=== PATIENT | female | born 1990 | race Two or more races ===

== ENCOUNTER 2024-02-26 18:13 | Emergency (ER) | payer MEDICAID, SELFPAY ==
[2024-02-26 20:44] VITALS: BP 115/74; PULSE 86; RESP 19; TEMP 37.2; O2SAT 100
[2024-02-26 20:47] VITALS: BMI 30.7
--- NOTE | 2024-02-26 21:00 | EDNOTE_ITS ---
ED Dental RME/HPI General Chief complaint: Dental/Oral/Throat Stated complaint: DENTAL PAIN S/P TEETH EXTRACTED x5 DAYS AGO Time Seen by Provider: 02/26/24 20:53 Source: patient Arrival date/time: 02/26/24 18:13 33-year-old female no significant past medical history presents emergency department complaining of dental pain and left-sided cheek swelling after she had 2 wisdom teeth extracted 5 days ago. Patient reports swelling has slightly increased but denies any chills or fevers but does report pain to left side of face. Patient reports is able to eat and tolerate fluids. Mode of arrival: ambulatory Limitations: no limitations Related Data Previous Rx's ?Medication ?Instructions ?Recorded amoxicillin 875 mg-potassium 1 tab PO BID 7 days #14 tabs 02/26/24 clavulanate 125 mg tablet ibuprofen 600 mg tablet 600 mg PO Q8H PRN pain #20 tabs 02/26/24 Allergies Allergy/AdvReac Type Severity Reaction Status Date / Time No Known Allergies Allergy Verified 02/26/24 18:19 Review of Systems Review of Systems Systems Reviewed: All systems reviewed, normal except as documented Constitutional Constitutional: Reports system reviewed and no additional complaints, except as documented, Denies body ache(s), Denies chills and Denies fever(s) Eyes Eyes: Reports system reviewed and no additional complaints, except as documented and Denies change in vision ENT Ears, Nose, Mouth, and Throat: Reports system reviewed and no additional complaints, except as documented, Denies disequilibrium, Denies dizziness, Reports mouth pain, Denies sore throat, Denies vertigo and Reports other (Cheek swelling) Cardiovascular Cardiovascular: Reports system reviewed and no additional complaints, except as documented, Denies chest pain and Denies dyspnea Respiratory Respiratory: Reports system reviewed and no additional complaints, except as documented, Denies chest congestion, Denies cough and Denies dyspnea Gastrointestinal Gastrointestinal: Reports system reviewed and no additional complaints, except as documented, Denies abdominal pain, Denies nausea and Denies vomiting Musculoskeletal Musculoskeletal: Reports system reviewed and no additional complaints, except as documented, Denies abnormal gait and Denies arthralgias Integumentary/Breasts Skin/Breast: Reports system reviewed and no additional complaints, except as documented, Denies erythema, Denies rash and Denies wounds Neurologic Neurologic: Reports system reviewed and no additional complaints, except as documented, Denies abnormal gait, Denies disequilibrium, Denies dizziness and Denies vertigo Past Medical History Social History SMOKING STATUS: Never smoker ED Exam General Limitations: Present no limitations General appearance: Present alert and in no apparent distress Head Head exam: Present atraumatic Expanded Head Exam Head image: 2 1. +1 edema no obvious abscess warm to touch or redness to cheek. Eye Eye exam: Present normal appearance, PERRL and EOMI ENT ENT exam: Present normal exam, normal oropharynx and mucous membranes moist Expanded ENT Exam Mouth exam: Present tongue normal; Absent drooling, trismus or tongue swelling Teeth exam: Present gingival swelling and other (Gingival swelling to left lower and upper mandible with some redness but no obvious abscess observed but tender to touch.) Throat exam: Absent tonsillar erythema, tonsillar exudate or muffled voice Neck Neck exam: Present normal inspection, full ROM and trachea midline Chest Chest inspection: Present normal inspection and symmetric chest wall rise Respiratory Respiratory exam: Present normal lung sounds bilaterally Cardiovascular Cardiovascular exam: Present regular rate, normal rhythm and normal heart sounds Abdominal Exam Abdominal exam: Present soft and normal bowel sounds Extremities Exam Extremities exam: Present normal inspection and full ROM Back Exam Back exam: Present normal inspection and full ROM Neurological Exam Neurological exam: Present alert, oriented X3 and CN II-XII intact Psychiatric Psychiatric exam: Present normal affect and normal mood Skin Skin exam: Present warm, dry, intact and normal color Course Quality Measures none Orders Category Date Time Status Ketorolac Inj [Toradol Inj] Med 02/26/24 21:01 Discontinued 30 mg IM X1 ONE cefTRIAXone [Rocephin] 1,000 mg Med 02/26/24 21:01 Discontinued Lidocaine 1% 20 ml [Xylocaine 1% 20 ML] 2.1 ml IM X1 Vital Signs Vital signs: Vital Signs Temperature 99 F 02/26/24 20:44 Pulse Rate 86 02/26/24 20:44 Respiratory Rate 19 02/26/24 20:44 Blood Pressure 115/74 02/26/24 20:44 Pulse Oximetry (%) 100 02/26/24 20:44 Oxygen Delivery Method Room Air 02/26/24 20:44 100% room air within normal limits Dental / Oral MDM Narrative MDM Narrative:: 33-year-old female no significant past medical history presents emergency department complaining of dental pain and left-sided cheek swelling after she had 2 wisdom teeth extracted 5 days ago. Patient reports swelling has slightly increased but denies any chills or fevers but does report pain to left side of face. Patient reports is able to eat and tolerate fluids. Patient appears nontoxic and is hemodynamically stable. No adventitious lung sounds on auscultation. Left cheek swelling +1 with no redness or obvious abscess on outer cheek. Gingival swelling and redness observed to left lower and upper mandible where wisdom tooth were removed we will treat for possible infection due to recent tooth extraction. Patient given IM Rocephin and discharged on Augmentin and instructed to have close follow-up with dentist and return to emergency department for any worsening symptoms or as needed. Patient data External records reviewed:: [facility] previous records Clinical information provided by:: patient Social determinants that could affect healthcare access:: none Patient has the following chronic illnesses:: None How is presenting disease/condition affected by chronic disease/condition?: no chronic disease Evaluation data The following diagnostics were reviewed and interpreted by me:: other (specify) (N/A) Lab and/or radiology exams considered but not ordered:: N/A Interpretation Summary: N/A Medications / Prescriptions Medications or Prescriptions considered but not ordered:: Ordered Medication administrations:: Medication Administration History Discontinued Medications Ceftriaxone Sodium 1,000 mg/ (Lidocaine HCl 2.1 ml) 0 mg IM X1 ONE Stop: 02/26/24 21:02 Last Admin: 02/26/24 21:16 Dose: 1,000 mg Documented By: SONIA Ketorolac Tromethamine (Ketorolac Inj 60 Mg/2 Ml Vial) 30 mg IM X1 ONE Stop: 02/26/24 21:02 Last Admin: 02/26/24 21:15 Dose: 30 mg Documented By: SONIA Given Consultations Consultation(s) initiated? (list below): No Diagnosis Dental Differential Diagnosis: gingival abscess, dental caries, toothache and dental abscess Most likely diagnosis given after review of the tests above:: Dental pain Admission Indicated Admission indicated?: not indicated Admission Request Was there a request for admission?: No Disposition Plan Disposition Plan: Discharge Discharge Attestation Discharge Attestation: The patient and all family members were given an opportunity to ask questions and understood the discharge instructions. Discharge instructions specifically effects, indications for sooner follow up or return to the emergency department, and the expected course of current diagnosis. Patient condition: Stable Discharge Plan Plan Patient Disposition: HOME (Self Care) Disposition Comment: Stable Prescriptions/Referrals Prescriptions/Med Rec: New amoxicillin-pot clavulanate 875-125 mg tablet 1 tab PO BID 7 Days Qty: 14 0RF ibuprofen 600 mg tablet 600 mg PO Q8H PRN (Reason: pain) Qty: 20 0RF Referrals: No Primary/Family,Physician [Primary Care Provider] - In 1 week Problem List Clinical Impression: Pain, dental Patient/Caregiver Discharge Instructions Discharge Activity: activity as tolerated Education Materials: ED Dental Pain Additional Instructions: Drink plenty of fluids and stay hydrated. Take Tylenol and ibuprofen as needed for pain. Take antibiotics as prescribed. Close follow-up with primary care provider and dentist in 2 to 3 days for reevaluation of swelling and pain. Return immediately to emergency department for any chills, fever, increased pain, or as needed. Print Language: Faroese Stand Alone Forms: Hanane Award Info., Patient Portal Info Letter PA/MYKE Supervising Physician PA/MYKE Supervising Physician: Dr. Edwards
[2024-02-26] MEDS: KETOROLAC INJ 60 MG/2 ML VIAL 30 MG IM (21:15)
[2024-02-26] MEDS: cefTRIAXone 1,000 MG, LIDOCAINE 1% 20 ML 2.1 ML IM (21:16)
== END 2024-02-26 21:33 | disposition home or self-care (01) ==
PROVIDERS: Emergency Provider Emergency Medicine
DX: K08.89 Other specified disorders of teeth and supporting structures (principal)
CPT/HCPCS: 96372; 99283; J0696; J1885; J3490

== ENCOUNTER 2024-06-02 09:18 | Outpatient (AMB) | payer MEDICAID, SELFPAY ==
--- NOTE | 2024-06-02 09:44 | AMB.OBINITIA ---
Vital Signs 06/02/24 09:46 Height 1.52 m Height Method Stated Weight 74.191 kg Weight Measurement Method Standing Scale BMI 32.1 BP 131/77 H Blood Pressure Source Automatic Cuff Blood Pressure Location Left Upper Arm Position Sitting Respiration 18 Pulse 89 Pulse Source Monitor Temp 97.2 F Temp Source Oral Pulse Oximetry (%) 98 Oxygen Delivery Method Room Air Allergies/Home Meds Allergies & Medications Allergies No Known Allergies Allergy (Verified 06/02/24 09:47) Medication Reconciliation ibuprofen 600 mg tablet 600 mg PO Q8H PRN pain #20 tabs 02/26/24 [Rx Confirmed 06/02/24] doxylamine 10 mg-pyridoxine (vit B6) 10 mg tablet,delayed release (Diclegis) 1 tab PO BID 30 days #60 tabs 06/02/24 [Rx] vitamins with calcium no.72-iron 29 mg-folic acid 1 mg tablet ( Plus) 1 tab PO QDAY 90 days #90 tabs 06/02/24 [Rx] Intake Visit Data Collection New Patient or Established: Established Patient (seen at [facility] within 3 years) Reason for Visit:: NOBI Seen by Clinical Staff ONLY (RN/MA): No 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 1. Little interest or pleasure in doing things: not at all 2. Feeling down, depressed, or hopeless: not at all Total score: 0 PHQ-9 3. Trouble falling or staying asleep, or sleeping too much: Not at all 4. Feeling tired or having little energy: Not at all 5. Poor appetite or overeating: Not at all 6. Feeling bad about yourself - or that you are a failure or have let yourself or your family down: Not at all 7. Trouble concentrating on things, such as reading the newspaper or watching television: Not at all 8. Moving or speaking so slowly that other people could have noticed? - Or the opposite - being so fidgety or restless that you have been moving around a lot more than usual: not at all 9. Thoughts that you would be better off or of hurting yourself in some way: Not at all Total score: 0 If you checked off any problems, how difficult have these problems made it for you to do your work, take care of things at home, or get along with other people?: not difficult at all Source: Developed by Drs. Yuval Collins, Vijaya Diaz, Kashif Villaseñor and colleagues, with an educational laila from [employer]. Depression screen completed yes Social History Living Situation History Marital Status: Lives With: Family Housing: House Tobacco History Smoking Status: Never smoker Second Hand Smoke Exposure: No Alcohol History Alcohol Intake: Never Domestic Abuse History Do You Feel Safe at Home: Yes Past Medical History Past Medical History Have you ever been diagnosed with any of the following: History of Present Illness HPI Narrative 33-year-old 3 para 2 for first visit at [facility] OB clinic. Last. February 21, 2024. EDC 11/25/2024. Patient has unsure dates. Menses are every month and last 8 days. Last pap 2 years ago. Denies social habits. Patient denies surgeries. Denies chronic illness. Patient reports 2 vaginal deliveries. She states both were uncomplicated the first baby weighed over 4 kg per patient but she is not sure. With this patient complains of feeling tired, dizzy and breast pain. Complains of nausea and vomiting. Denies any complaints of SAB OB Initial Visit OB Flowsheet OB Flowsheet Initial Weight: Not Recorded Date <del>?</del> EGA Weight Edema CTX Effacement BP Fundal ht Pres Dilation Effacement Station Visit Note Alb Glu FHR Mov 06/02/24 <del>?</del> 14w 4d 74.191 kg absent absent 131/77 12 33-year-old 3 para 2. Poor dates. Reports movement. Complains nausea and vomiting first trimester discomforts. Patient is currently taking vitamins. Denies SAB complaints. Patient is does not want to go to [place] for MFM appointment and prefers ultrasound local. Ordered first trimester labs. NIPT, carrier screens drawn today. And schedule ultrasound at [facility] for viability and dating. Discussed SAB precautions. Discussed comfort measures for first trimester discomforts. Return in 4 weeks 176 active Menstrual History Menstrual reliability: definite Flow: normal Menstrual regularity: regular Monthly: Yes Age at menarche: 13 On control pills at conception: No Menstrual history comments: menses q month x 8 days, unsure lmp Associated symptoms (LMP): Reports nausea, vomiting, fatigue and breast tenderness OB History : 3 Para: 2 Hx # Pregnancies: 0 Hx Total # of Abortions (Spontaneous & Elective): 0 # of Living Children: 2 Delivery History 1st : date: 10/04/10 sex: female Delivery type: vaginal Delivery complications: none History of depression before or after : No 2nd : date: 11/14/07 sex: male Delivery type: vaginal Delivery complications: none History of depression before or after : No Infection History & Risk Evaluation History of STDs: none HIV risk evaluation: low risk Hepatitis B risk evaluation: low risk Patient or partner has history of Genital Herpes: No Varicella/chicken pox status: immunized Genetic Screening & History Genetic Screening/Teratology Counseling - Includes patient, baby's father, or anyone in either family with: 1. Patient's age 35 years or older as of estimated date of delivery: No 2. Thalassemia (Slovenian, Lao, Mediterranean, or Background); MCV less than 80: No 3. Neural Tube Defect (Meningomyelocele, Spina Bifida, or Anencephaly): No 4. Congenital Heart Defect: No 5. Down Syndrome: No 6. Musa-Sachs (Ashkenazi Latter Day, Cajun, Luxembourgish Bradley): No 7. Leonidas Disease (Ashkenazi Latter Day): No 8. Familial Dysautonomia (Ashkenazi Latter Day): No 9. Sickle Cell Disease or Trait (): No 10. Hemophilia or other blood disorders: No 11. Muscular Dystrophy: No 12. Cystic Fibrosis: No 13. Cranberry's Chorea: No 14. Mental Retardation/Autism: No 15. Other inherited genetic or chromosomal disorder: No 16. Maternal Metabolic Disorder (EG,TYPE 1 Diabetes, PKU): No 17. Patient or baby's father had a child with defects not listed above: No 18. Recurrent loss or a stillbirth: No 19. Medications (including supplements, vitamins, herbs or otc drugs)/illicit/recreational drugs/alcohol since last menstrual period: No 20. Any other: No Infection History 1. Live with someone with TB or exposed to TB: No 2. Rash or viral illness since last menstrual period: No 3. Hepatitis B,C: No Other (see comments) Source: [employer] Review of Systems Review of Systems Systems Reviewed: All systems reviewed, normal except as documented Constitutional Constitutional: Reports fatigue Gastrointestinal Gastrointestinal: Reports nausea and Reports vomiting Endocrine Endocrine: Reports fatigue Exam Narrative Physical exam: _+ fht 178. fh:12 General Limitations: no limitations General Appearance: alert, in no apparent distress, comfortable, cooperative, healthy appearing, well developed and well groomed Resp Respiratory exam: Present normal lung sounds bilaterally Card Cardiovascular exam: Present regular rate, normal rhythm and normal heart sounds Abdominal Abdominal exam: Present soft and normal bowel sounds Psych Psychiatric exam: Present normal affect and normal mood Assessment & Plan Diagnosis / Problem List (1) Encounter for supervision of normal in multigravida in second trimester: Status: Acute Plan Schedule ultrasound at [facility]. OB panel today with NIPT and carrier screens. Discussed diet and weight gain. Discussed comfort measures for nausea and vomiting. Refill prenatals and start Diclegis daily for nausea. Return in 4 weeks OB check Additional Plan Follow Up: 4 Weeks (OBC) Office Procedures OB Clinic LOC & Office Proc's Nursing/Assessment Patient Status: Established Patient OB Clinic Nursing Assessment: Medication Reconciliation, Update PMH in EMR and Vital Signs OB Clinic Coordination of Care: Complex Care and Chronic Disease 1-5, Consent,records obtained, informed consent, Education Simp Pt/Fam, Lab and Imaging orders and Staff clarify orders Special Needs: Heart tones Established Patient Charge Established Patient Point Assignment: 130 Established Patient Point Charge: EP Level 4 (120-155)
[2024-06-02 09:46] VITALS: BP 131/77; PULSE 89; RESP 18; TEMP 36.2; O2SAT 98; BMI 32.1
== END 2024-06-02 09:58 | disposition home or self-care (01) ==
LOC: HODSOBC 09:18
PROVIDERS: Supervising Provider Advanced Practice Midwife; Visit Provider Advanced Practice Midwife
DX: Z34.82 Encounter for supervision of other normal pregnancy, second trimester (principal); Z3A.14 14 weeks gestation of pregnancy
CPT/HCPCS: 99214; G0463

== ENCOUNTER 2024-07-01 15:27 | Outpatient (AMB) | payer MEDICAID, SELFPAY ==
[2024-07-01 15:46] VITALS: BP 127/78; PULSE 87; RESP 18; TEMP 36.2; O2SAT 98; BMI 32.5
--- NOTE | 2024-07-01 15:46 | AMB.OBVISIT ---
Vital Signs 07/01/24 15:46 Height 1.52 m Height Method Stated Weight 75.296 kg Weight Measurement Method Standing Scale BMI 32.5 BP 127/78 Blood Pressure Source Automatic Cuff Blood Pressure Location Left Upper Arm Position Sitting Respiration 18 Pulse 87 Pulse Source Monitor Temp 97.2 F Temp Source Oral Pulse Oximetry (%) 98 Oxygen Delivery Method Room Air Allergies/Home Meds Allergies & Medications Allergies No Known Allergies Allergy (Verified 07/01/24 15:55) Medication Reconciliation ibuprofen 600 mg tablet 600 mg PO Q8H PRN pain #20 tabs 02/26/24 [Rx Confirmed 07/01/24] doxylamine 10 mg-pyridoxine (vit B6) 10 mg tablet,delayed release (Diclegis) 1 tab PO BID 30 days #60 tabs 06/02/24 [Rx Confirmed 07/01/24] vitamins with calcium no.72-iron 29 mg-folic acid 1 mg tablet ( Plus) 1 tab PO QDAY 90 days #90 tabs 06/02/24 [Rx Confirmed 07/01/24] Intake Visit Data Collection New Patient or Established: Established Patient (seen at [facility] within 3 years) Reason for Visit:: OBC Seen by Clinical Staff ONLY (RN/MA): No 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 1. Little interest or pleasure in doing things: not at all 2. Feeling down, depressed, or hopeless: not at all Total score: 0 PHQ-9 3. Trouble falling or staying asleep, or sleeping too much: Not at all 4. Feeling tired or having little energy: Not at all 5. Poor appetite or overeating: Not at all 6. Feeling bad about yourself - or that you are a failure or have let yourself or your family down: Not at all 7. Trouble concentrating on things, such as reading the newspaper or watching television: Not at all 8. Moving or speaking so slowly that other people could have noticed? - Or the opposite - being so fidgety or restless that you have been moving around a lot more than usual: not at all 9. Thoughts that you would be better off or of hurting yourself in some way: Not at all Total score: 0 If you checked off any problems, how difficult have these problems made it for you to do your work, take care of things at home, or get along with other people?: not difficult at all Source: Developed by Drs. Yuval Collins, Vijaya Diaz, Kashif Villaseñor and colleagues, with an educational laila from [employer] Reviewed. Depression screen completed yes Social History Living Situation History Lives With: Family Housing: House Tobacco History Smoking Status: Never smoker Second Hand Smoke Exposure: No Alcohol History Alcohol Intake: Never Domestic Abuse History Do You Feel Safe at Home: Yes Care OB Visit Log OB Flowsheet Initial Weight: Not Recorded Date <del>?</del> EGA Weight BP Alb Glu CTX Pres Fundal ht FHR Mov Dilation Station Effacement Hx Notes Visit Note 06/02/24 <del>?</del> 14w 4d 74.191 kg 131/77 absent 12 176 active 33-year-old 3 para 2. Poor dates. Reports movement. Complains nausea and vomiting first trimester discomforts. Patient is currently taking vitamins. Denies SAB complaints. Patient is does not want to go to [place] for MFM appointment and prefers ultrasound local. Ordered first trimester labs. NIPT, carrier screens drawn today. And schedule ultrasound at [facility] for viability and dating. Discussed SAB precautions. Discussed comfort measures for first trimester discomforts. Return in 4 weeks 07/01/24 <del>?</del> 18w 5d 75.296 kg 127/78 absent unknown 18 155 active no ob complaints, nausea improved, sono pending AFP today, sono pending, patoent has dignity . prefers to do scan in [place]/transportation issue. sab precaution,increase fluid. rtc 4 week DEISY Calculator Estimated Delivery Date Method Current WG Current Estimate 11/27/24 LMP (Uncertain) 18w 5d Office Procedures OB Clinic LOC & Office Proc's Nursing/Assessment Patient Status: Established Patient OB Clinic Nursing Assessment: Medication Reconciliation, Update PMH in EMR and Vital Signs OB Clinic Coordination of Care: Complex Care and Chronic Disease 1-5, Education Complex Pt/Fam, Consent,records obtained, informed consent, Lab and Imaging orders, Results/Orders obtained and Staff clarify orders Special Needs: Heart tones Established Patient Charge Established Patient Point Assignment: 140 Established Patient Point Charge: EP Level 4 (120-155) Assessment & Plan Diagnosis / Problem List (1) Encounter for supervision of normal in multigravida in second trimester: Status: Acute Plan AFP. sono pending due to insurance, sab precaution, continue PNV, increase fluid, rtc 4 wk OBC Additional Plan Follow Up: 4 Weeks (obc)
== END 2024-07-01 16:13 | disposition home or self-care (01) ==
LOC: HODSOBC 15:27
PROVIDERS: Supervising Provider Advanced Practice Midwife; Visit Provider Advanced Practice Midwife
DX: Z34.82 Encounter for supervision of other normal pregnancy, second trimester (principal); Z3A.18 18 weeks gestation of pregnancy
CPT/HCPCS: 99214; G0463

== ENCOUNTER 2024-08-11 15:40 | Outpatient (AMB) | payer MEDICAID, SELFPAY ==
[2024-08-11 15:47] VITALS: BP 134/88; PULSE 82; RESP 17; TEMP 36.3; O2SAT 98; BMI 33.3
--- NOTE | 2024-08-11 15:47 | OBCLNT_ITS ---
Vital Signs 08/11/24 15:47 Height 1.52 m Height Method Stated Weight 77.111 kg Weight Measurement Method Standing Scale BMI 33.3 BP 134/88 H Blood Pressure Source Automatic Cuff Blood Pressure Location Right Upper Arm Position Sitting Respiration 17 Pulse 82 Pulse Source Monitor Temp 97.3 F Temp Source Temporal Artery Scan Pulse Oximetry (%) 98 Oxygen Delivery Method Room Air Allergies/Home Meds Allergies & Medications Allergies No Known Allergies Allergy (Verified 08/11/24 15:48) Medication Reconciliation vitamins with calcium no.72-iron 29 mg-folic acid 1 mg tablet ( Plus) 1 tab PO QDAY 90 days #90 tabs 06/02/24 [Rx Confirmed 08/11/24] Intake Visit Data Collection New Patient or Established: Established Patient (seen at [facility] within 3 years) Reason for Visit:: OBC Seen by Clinical Staff ONLY (RN/MA): No Form Builder Helper Required: No Do You Feel Safe at Home: Yes Authorities Contacted: N/A PCP or OBGYN visit in last 3 months: Yes Date of Last PCP or OBGYN visit: 07/01/24 Hx Now: Yes Are you currently on any form of Control: No Pain Present Currently: No Pain Scale Used: Gold-Dominguez/Numerical Pain scale:: 0 Smoking Status Smoking Status: Never smoker Questionnaires Covid-19 Vaccine Questionnaire Has patient been vacinated for Covid-19 Have you been vacinated for Covid-19: No PHQ-9 PHQ-2 Over the last 2 weeks, how often have you been bothered by any of the following problems? 1. Little interest or pleasure in doing things: not at all 2. Feeling down, depressed, or hopeless: not at all Total score: 0 PHQ-9 3. Trouble falling or staying asleep, or sleeping too much: Not at all 4. Feeling tired or having little energy: Not at all 5. Poor appetite or overeating: Not at all 6. Feeling bad about yourself - or that you are a failure or have let yourself or your family down: Not at all 7. Trouble concentrating on things, such as reading the newspaper or watching television: Not at all 8. Moving or speaking so slowly that other people could have noticed? - Or the opposite - being so fidgety or restless that you have been moving around a lot more than usual: not at all 9. Thoughts that you would be better off or of hurting yourself in some way: Not at all Total score: 0 If you checked off any problems, how difficult have these problems made it for you to do your work, take care of things at home, or get along with other people?: not difficult at all Source: Developed by Drs. Yuval Collins, Vijaya Diaz, Kashif Villaseñor and colleagues, with an educational laila from [employer]. Depression screen completed yes Social History Living Situation History Marital Status: Lives With: Family Housing: House Tobacco History Smoking Status: Never smoker Second Hand Smoke Exposure: No Alcohol History Alcohol Intake: Never Domestic Abuse History Do You Feel Safe at Home: Yes Care OB Visit Log OB Flowsheet Initial Weight: Not Recorded Date -?-?-?-?-?-?-?-?-?-?-?-?- EGA Weight BP Alb Glu CTX Pres Fundal ht FHR Mov Dilation Station Effacement Hx Notes Visit Note 06/02/24 -?-?-?-?-?-?-?-?-?-?-?-?- 14w 4d 74.191 kg 131/77 absent 12 176 ac tive 33-year-old 3 para 2. Poor dates. Reports movement. Complains nausea and vomiting first trimester discomforts. Patient is currently taking vitamins. Denies SAB complaints. Patient is does not want to go to [place] for M appointment and prefers ultrasound local. Ordered first trimester labs. NIPT, carrier screens drawn today. And schedule ultrasound at [facility] for viability and dating. Discussed SAB precautions. Discussed comfort measures for first trimester discomforts. Return in 4 weeks 07/01/24 -?-?-?-?-?-?-?-?-?-?-?-?- 18w 5d 75.296 kg 127/78 absent unknown 18 155 active no ob complaints, nausea improved, sono pending AF P today, sono pending, patoent has dignity . prefers to do scan in [place]/transportation issue. sab precaution,increase fluid. rtc 4 week 08/11/24 -?-?-?-?-?-?-?-?-?-?-?-?- 24w 4d 77.111 kg 134/88 absent unknown 22 145 active fetus active. no SAB/PTL complaints,. no leaking or bleeding r/s sono at [facility], discuss PTL precaution, hydrate. 3rd [facility] labs DEISY Calculator Estimated Delivery Date Method Current WG Current Estimate 11/27/24 LMP (Uncertain) 24w 4d Notes Visit Date: 08/11/24 Last Updated by: Vashti Peace CNM 08/11: O+,abs-, rpr;;nr, rub imm, HBSAG-,HIV-, HC-, GC/CT-, NIPT/AFP-, carrier screen- Office Procedures OB Clinic LOC & Office Proc's Nursing/Assessment Patient Status: Established Patient OB Clinic Nursing Assessment: Medication Reconciliation, Update PMH in EMR and Vital Signs OB Clinic Coordination of Care: Complex Care and Chronic Disease 1-5, Con sent,records obtained, informed consent, Education Simp Pt/Fam and Staff clarify orders Special Needs: Heart tones Established Patient Charge Established Patient Point Assignment: 115 Established Patient Point Charge: EP Level 3 (80-115) Assessment & Plan Diagnosis / Problem List (1) Encounter for supervision of normal in multigravida in second trimester: Status: Acute Additional Plan Follow Up: 4 Weeks (OBC)
== END 2024-08-11 16:07 | disposition home or self-care (01) ==
LOC: HODSOBC 15:40
PROVIDERS: Supervising Provider Advanced Practice Midwife; Visit Provider Advanced Practice Midwife
DX: Z34.82 Encounter for supervision of other normal pregnancy, second trimester (principal); Z3A.24 24 weeks gestation of pregnancy
CPT/HCPCS: 99213; G0463

== ENCOUNTER 2024-08-18 16:08 | Observation (INO) | payer MEDICAID, SELFPAY ==
[2024-08-18] VITALS (10 sets, daily range): BP systolic 116–135; BP diastolic 70–82; PULSE 75–89; RESP 16–97; TEMP 36.7; O2SAT 92–97
--- NOTE | 2024-08-18 16:28 | XR_ITS ---
Examination: Complete OB ultrasound greater than 14 weeks Date and time of exam: August 18, 2024 1641 hours INDICATIONS: Onset moderate vaginal bleeding today Findings: Viable intrauterine single fetus with single amniotic sac presentation breech spine posterior. Cardiac motion 155 BPM. Placenta complete previa Placenta grade 1 Umbilical cord insertion seen Amniotic fluid index adequate Cervix 4.3 cm Right ovary 2.[address] Aviles by bowel gas. Composite estimated gestational age based on BPD, head circumference, abdominal circumference, femur length is 22 weeks 3 days Estimated weight 514 g . Survey of intracranial anatomy, spinal anatomy, abdominal anatomy, four-chamber heart performed with no abnormalities identified. Impression: Viable intrauterine gestation in breech presentation Complete placenta previa, no abruption.
== END 2024-08-18 18:05 | disposition home or self-care (01) ==
PROVIDERS: Admitting Provider Obstetrics & Gynecology; Visit Provider Obstetrics & Gynecology
DX: O46.92 Antepartum hemorrhage, unspecified, second trimester (principal); Z3A.25 25 weeks gestation of pregnancy
CPT/HCPCS: 59899; 76805

== ENCOUNTER 2024-08-21 15:05 | Observation (INO) | payer MEDICAID, SELFPAY ==
[2024-08-21] VITALS (58 sets, daily range): BP systolic 106–130; BP diastolic 63–82; PULSE 80–111; RESP 16–98; TEMP 36.6–36.8; O2SAT 89–99; BMI 34.0
--- NOTE | 2024-08-21 15:45 | XR_ITS ---
Examination: Complete OB ultrasound greater than 14 weeks Date and time of exam: August 21, 2024 at 1558 hours INDICATIONS: Complete placenta previa on sonogram August 18, 2024, vaginal bleeding today Findings: Viable intrauterine single fetus with single amniotic sac presentation breech Cardiac motion 162 BPM Placenta posterior grade 2 complete previa nor abruption Umbilical cord insertion seen Amniotic fluid index 17.9 cm spine maternal right. Cervix 3.7 cm. Right ovary 3.[address] severino 4.6 cm arterial flow.. Composite estimated gestational age based on BPD, head circumference, abdominal circumference, femur length is 22 weeks 6 days Estimated weight 535 g. Survey of intracranial anatomy, spinal anatomy, abdominal anatomy, four-chamber heart performed with no abnormalities identified. Impression: Viable intrauterine gestation breech presentation Placenta posterior complete previa, no abruption.
[2024-08-21 16:23] LABS: Basophils # (Auto) 0.0 Thou/mm3 (0.0-0.2); Basophils % (Auto) 0 % (0-2.5); Eosinophils # (Auto) 0.1 Thou/mm3 (0.0-0.5); Eosinophils % (Auto) 1 % (0-10); Hematocrit 36.3 % (36.0-46.0); Hemoglobin 12.6 g/dL (12.0-16.0); Immature Granulocytes Auto 0.03 Thou/mm3 (0.00-0.00); Lymphocytes # (Auto) 2.3 Thou/mm3 (1.0-4.8); Lymphocytes % (Auto) 28 % (10-50); Mean Corpuscular HGB Conc 34.7 g/dl (31.0-37.0); Mean Corpuscular Hemoglobin 31.9 pg (25.0-35.0); Mean Corpuscular Volume 92 fL (80-100); Monocytes # (Auto) 0.6 Thou/mm3 (0.0-0.8); Monocytes % (Auto) 7 % (0-12); Neutrophils # (Auto) 5.3 Thou/mm3 (1.8-7.7); Neutrophils % (Auto) 64 % (37-80); Nucleated Red Blood Cell # 0.00 Thou/mm3 (0.00-0.00); Nucleated Red Blood Cell % 0 /100 WBC (0); Platelet Count 363 Thou/mm3 (140-440); RDW Standard Deviation 43.8 fL (36.4-46.3); Red Blood Count 3.95 Miln/mm3 (4.00-5.20); White Blood Count 8.3 Thou/mm3 (3.6-11.0)
--- NOTE | 2024-08-21 21:23 | PD.LDANTE ---
Documentation for date of: 08/21/24 OB Labor/Induct. HPI History of Present Illness Chief complaint: Vaginal bleeding, placenta previa : 3 Para: 2 Term pregnancies: 2 pregnancies: 0 Living children: 2 History of Abortions: Spontaneous and Elective: 0 History of Vaginal deliveries: 2 History of sections: No History of : No Date of last menstrual period: 02/21/24 DEISY: 11/25/24 Gestational age based on last menstrual period: 26 History of present illness: 33-year-old 3 para 2 at 26 weeks and 2 days with known complete posterior placenta previa presented to labor and delivery triage for the second time in 72 hours with new onset vaginal bleeding. Patient states that she saw a golf ball sized clot in the toilet as well as blood on the tissue when wiping. She was here with similar complaints 2 to 3 days ago and during her workup she was noted to have a complete placenta previa patient was then discharged after her bleeding had subsided and she was seen as outpatient from where she was referred for a stat MFM consult. Patient is still pending her MFM appointment. History of Present Adequate Care: Yes Past Medical History Surgical History SURGICAL: Negative Section Meds Home Medications and Allergies Allergies Allergy/AdvReac Type Severity Reaction Status Date / Time No Known Allergies Allergy Verified 08/11/24 15:48 OB Exam Physical Exam Vital signs: Temp Pulse Resp BP Pulse Ox 98.0 F 83 16 116/76 98 08/21/24 15:05 08/21/24 21:11 08/21/24 15:05 08/21/24 21:11 08/21/24 19:43 Constitutional Constitutional: no acute distress Routine HEENT Exam Head: Present normocephalic and atraumatic Eye: Present EOMI and PERRL ENT: Present mucous membranes moist Routine Neck Exam Neck: Present supple and trachea midline Routine Cardiovascular Exam Cardiovascular: Present RRR Routine Abdominal Exam Abdominal: Present soft and normoactive bowel sounds Routine Extremities Exam Extremities: Present full ROM Routine Skin Exam Skin: Present intact, dry and warm Routine Neurological Exam Neurological: Present alert, oriented X3 and CN II-XII intact Routine Psychiatric Exam Psychiatric: Present normal affect and normal thought process OB Results Labs 08/22/24 05:20 Labs: Short CBC 08/21/24 Range/Units 15:59 WBC 8.3 (3.6-11.0) Thou/mm3 Hgb 12.6 (12.0-16.0) g/dL Hct 36.3 (36.0-46.0) % Plt Count 363 (140-440) Thou/mm3 OB Assessment & Plan Assessment and Plan (1) Placenta previa: Status: Acute Assessment and plan: Admit to observation for monitoring of ongoing uterine bleeding. Complete OB ultrasound performed and does not show any signs of abruption tracing is appropriate for gestational age and amniotic fluid is within normal limits. Serial CBCs to monitor for ongoing bleeding. Betamethasone for lung maturity Monitor closely and further management based on clinical course (2) Supervision of high risk , unspecified, second trimester: Status: Acute
[2024-08-21] MEDS: RINGERS LACTATED 1000 ML 1,000 ML 75 ML IV (22:00)
[2024-08-21] MEDS: BETAMET ACET/BETAMET NA PH (Celestone) 6 MG/ML VIAL 12 MG IM (22:38)
[2024-08-21 23:37] LABS: Amphetamine/Metham Scrn,Ur OB Negative (Negative); Benzoylecgonine Screen, Ur OB Negative (Negative); Opiate Screen,Urine OB Negative (Negative); THC Screen,Urine OB Negative (Negative)
[2024-08-22] VITALS (13 sets, daily range): BP systolic 91–115; BP diastolic 55–79; PULSE 68–109; RESP 17–20; TEMP 36.5–37.1; O2SAT 99; BMI 33.9
[2024-08-22 05:59] LABS: Basophils # (Auto) 0.0 Thou/mm3 (0.0-0.2); Basophils % (Auto) 0 % (0-2.5); Eosinophils # (Auto) 0.0 Thou/mm3 (0.0-0.5); Eosinophils % (Auto) 0 % (0-10); Hematocrit 36.5 % (36.0-46.0); Hemoglobin 12.7 g/dL (12.0-16.0); Immature Granulocytes Auto 0.04 Thou/mm3 (0.00-0.00); Lymphocytes # (Auto) 1.5 Thou/mm3 (1.0-4.8); Lymphocytes % (Auto) 17 % (10-50); Mean Corpuscular HGB Conc 34.8 g/dl (31.0-37.0); Mean Corpuscular Hemoglobin 32.1 pg (25.0-35.0); Mean Corpuscular Volume 92 fL (80-100); Monocytes # (Auto) 0.1 Thou/mm3 (0.0-0.8); Monocytes % (Auto) 1 % (0-12); Neutrophils # (Auto) 7.3 Thou/mm3 (1.8-7.7); Neutrophils % (Auto) 81 % (37-80); Nucleated Red Blood Cell # 0.00 Thou/mm3 (0.00-0.00); Nucleated Red Blood Cell % 0 /100 WBC (0); Platelet Count 358 Thou/mm3 (140-440); RDW Standard Deviation 43.6 fL (36.4-46.3); Red Blood Count 3.96 Miln/mm3 (4.00-5.20); White Blood Count 9.0 Thou/mm3 (3.6-11.0)
[2024-08-22 06:12] LABS: INR 1.0 (0.9-1.3); Partial Thromboplastin Time 23.6 Seconds (22.0-36.0); Prothrombin Time 10.6 Seconds (9.0-12.2)
--- NOTE | 2024-08-22 07:02 | XR_ITS ---
Examination: Complete OB ultrasound greater than 14 weeks Date and time of exam: August 22, 2024, 0731 hours INDICATIONS: Vaginal bleeding beginning last night Findings: Viable intrauterine single fetus with single amniotic sac presentation cephalic Cardiac motion 141 BPM Placenta posterior complete previa grade 2 no abruption Umbilical cord insertion 3 vessel seen Amniotic fluid index 15.8 cm spine posterior Cervix 3.6 cm closed Right ovary 4.8 cm arterial flow Left ovary 5.2 cm arterial flow Minimal fluid in the vaginal canal Composite estimated gestational age based on BPD, head circumference, abdominal circumference, femur length is is Estimated weight 534 g. Survey of intracranial anatomy, spinal anatomy, abdominal anatomy, four-chamber heart performed with no abnormalities identified. Impression: Viable intrauterine gestation cephalic presentation Placenta posterior complete previa grade 2 No placental abruption.
[2024-08-22 07:32] LABS: Fibrinogen 600 mg/dL (175-375)
[2024-08-22] MEDS: RINGERS LACTATED 1000 ML 1,000 ML 75 ML IV (09:25)
--- NOTE | 2024-08-22 09:38 | ESPR_ITS ---
Documentation for date of: 08/22/24 DIRECTOR OF RADIOLOGY Subjective Subjective Interval history: Patient evaluated at bedside and complete OB ultrasound repeated this morning. No change in study from previous exam. Only old dark-colored/black-colored blood seen on the Chux and in the toilet Chelsey. Exam Vital Signs Temp Pulse Resp BP Pulse Ox O2 Del Method 97.7 F 96 17 115/79 99 Room Air 08/22/24 07:30 08/22/24 09:22 08/22/24 07:30 08/22/24 09:22 08/22/24 04:00 08/22/24 04:00 Constitutional Constitutional: no acute distress Routine HEENT Exam Head: Present normocephalic and atraumatic Eye: Present EOMI and PERRL ENT: Present mucous membranes moist Routine Neck Exam Neck: Present supple and trachea midline Routine Respiratory Exam Respiratory: Present chest non-tender, lungs clear, normal breath sounds and no resp distress Routine Cardiovascular Exam Cardiovascular: Present RRR Routine Abdominal Exam Abdominal: Present soft and normoactive bowel sounds Routine Extremities Exam Extremities: Present full ROM Routine Skin Exam Skin: Present intact and dry Routine Neurological Exam Neurological: Present alert, oriented X3 and CN II-XII intact Routine Psychiatric Exam Psychiatric: Present normal affect and normal thought process Urinary Catheter Management Cath placed during this visit: no DIRECTOR OF RADIOLOGY - PN: Obj Data Labs 08/22/24 05:20 Labs: Laboratory Results - last 24 hr 08/21/24 08/21/24 08/21/24 15:59 20:24 20:30 WBC 8.3 RBC 3.95 L Hgb 12.6 Hct 36.3 MCV 92 MCH 31.9 MCHC 34.7 RDW Std Deviation 43.8 Plt Count 363 Neut % (Auto) 64 Lymph % (Auto) 28 Cascade % (Auto) 7 Eos % (Auto) 1 Baso % (Auto) 0 Neut # (Auto) 5.3 Lymph # (Auto) 2.3 Cascade # (Auto) 0.6 Eos # (Auto) 0.1 Baso # (Auto) 0.0 Immature Gran # (Auto) 0.03 H Absolute Nucleated RBC 0.00 Immature Gran % 0 Nucleated RBC % 0 PT INR APTT Fibrinogen Urine Opiates Screen Negative U Amphetamin/Meth Scrn Negative U Cocaine Metab Screen Negative U Marijuana (THC) Screen Negative Blood Type O Positive Antibody Screen NEGATIVE Crossmatch Blood Bank Wristband ID Yes 08/21/24 08/22/24 21:44 05:20 WBC 9.0 RBC 3.96 L Hgb 12.7 Hct 36.5 MCV 92 MCH 32.1 MCHC 34.8 RDW Std Deviation 43.6 Plt Count 358 Neut % (Auto) 81 H Lymph % (Auto) 17 Cascade % (Auto) 1 Eos % (Auto) 0 Baso % (Auto) 0 Neut # (Auto) 7.3 Lymph # (Auto) 1.5 Cascade # (Auto) 0.1 Eos # (Auto) 0.0 Baso # (Auto) 0.0 Immature Gran # (Auto) 0.04 H Absolute Nucleated RBC 0.00 Immature Gran % 0 Nucleated RBC % 0 PT 10.6 INR 1.0 APTT 23.6 Fibrinogen 600 H Urine Opiates Screen U Amphetamin/Meth Scrn U Cocaine Metab Screen U Marijuana (THC) Screen Blood Type O Positive Antibody Screen NEGATIVE Crossmatch See Detail Blood Bank Wristband ID Yes DIRECTOR OF RADIOLOGY - A/P Assessment and plan (1) Placenta previa: Status: Acute Assessment and plan: Plan to discharge home today. Patient and her family member extensively counseled about the risks of placenta previa, complete pelvic rest, avoidance of any interventions per vaginally. Patient's stat MFM referral has been faxed and she is awaiting an appointment from maternal- medicine Strictly reviewed precautions for ongoing bleeding and warning signs to come in to the ER/triage (2) Supervision of high risk , unspecified, second trimester: Status: Acute Time Spent With Patient Time: Total time spent is greater than 50% in coordination of care (as documented) at patient's floor/unit and/or counseling patient: Time with patient: less than 15 minutes
== END 2024-08-22 10:35 | disposition home or self-care (01) ==
PROVIDERS: Admitting Provider Obstetrics & Gynecology; Visit Provider Obstetrics & Gynecology
DX: O44.12 Complete placenta previa with hemorrhage, second trimester (principal); O09.92 Supervision of high risk pregnancy, unspecified, second trimester; O32.1XX0 Maternal care for breech presentation, not applicable or unspecified; Z3A.26 26 weeks gestation of pregnancy
CPT/HCPCS: 36415; 59025; 59899; 76805; 80307; 85025; 85384; 85610; 85730; 86850; 86900; 86901; 86923; 96360; 96361; 96372; J0702; J7120

== ENCOUNTER 2024-08-22 22:39 | Observation (INO) | payer MEDICAID, SELFPAY ==
[2024-08-22] VITALS (13 sets, daily range): BP systolic 107–131; BP diastolic 62–70; PULSE 77–92; RESP 18–98; TEMP 37; O2SAT 98–100; BMI 31.7
[2024-08-22] MEDS: BETAMET ACET/BETAMET NA PH (Celestone) 6 MG/ML VIAL 12 MG IM (23:09)
== END 2024-08-23 00:05 | disposition home or self-care (01) ==
PROVIDERS: Admitting Provider Nurse Practitioner Family; Visit Provider Obstetrics & Gynecology
DX: Z34.82 Encounter for supervision of other normal pregnancy, second trimester (principal); Z3A.26 26 weeks gestation of pregnancy
CPT/HCPCS: 59025; 59899; 96372; J0702

== ENCOUNTER 2024-09-10 14:44 | Outpatient (AMB) | payer MEDICAID, SELFPAY ==
[2024-09-10 15:05] VITALS: BP 124/80; PULSE 84; RESP 17; TEMP 36.4; O2SAT 97
--- NOTE | 2024-09-10 15:05 | OBCLNT_ITS ---
Vital Signs 09/10/24 15:05 Weight 76.827 kg Weight Measurement Method Standing Scale BP 124/80 Blood Pressure Source Automatic Cuff Blood Pressure Location Right Upper Arm Position Sitting Respiration 17 Pulse 84 Pulse Source Monitor Temp 97.5 F Temp Source Temporal Artery Scan Pulse Oximetry (%) 97 Oxygen Delivery Method Room Air Allergies/Home Meds Allergies & Medications Allergies No Known Allergies Allergy (Verified 09/10/24 15:06) Intake Visit Data Collection New Patient or Established: Established Patient (seen at [facility] within 3 years) Reason for Visit:: OBC Consent obtained for Telemed Visit: No Seen by Clinical Staff ONLY (RN/MA): No Rn Wound Care Required: No Do You Feel Safe at Home: Yes Authorities Contacted: N/A PCP or OBGYN visit in last 3 months: Yes Date of Last PCP or OBGYN visit: 08/22/24 Hx Now: Yes Are you currently on any form of Control: No Pain Present Currently: No Pain Scale Used: Ogld-Dominguez/Numerical Pain scale:: 0 Smoking Status Smoking Status: Never smoker Questionnaires Covid-19 Vaccine Questionnaire Has patient been vacinated for Covid-19 Have you been vacinated for Covid-19: No PHQ-9 PHQ-2 Over the last 2 weeks, how often have you been bothered by any of the following problems? 1. Little interest or pleasure in doing things: not at all PHQ-9 8. Moving or speaking so slowly that other people could have noticed? - Or the opposite - being so fidgety or restless that you have been moving around a lot more than usual: not at all Source: Developed by Drs. Yuval Collins, Vijaya Diaz, Kashif Villaseñor and colleagues, with an educational laila from [employer]. Social History Living Situation History Lives With: Family Housing: House Tobacco History Smoking Status: Never smoker Second Hand Smoke Exposure: No Alcohol History Alcohol Intake: Never Domestic Abuse History Do You Feel Safe at Home: Yes JUICE TESTER: Past Medical History Past Medical History: No Hx Neurological Disorders, No Hx Breast Cancer, No Hx Cardiac Disorders, No Hx Cancer, No Hx Blood Disorders, No Hx Gastrointestinal Disorders, No Hx Renal Disease, No Hx Diabetes Mellitus Type 1 and No Hx Diabetes Mellitus Type 2 Care OB Visit Log OB Flowsheet Initial Weight: Not Recorded Date -?-?-?-?-?-?-?-?-?-?-?-?- EGA Weight BP Alb Glu CTX Pres Fundal ht FHR Mov Dilation Station Effacement Hx Notes Visit Note 06/02/24 -?-?-?-?-?-?-?-?-?-?-?-?- 11w 3d 74.191 kg 131/77 absent 12 176 ac tive 33-year-old 3 para 2. Poor dates. Reports movement. Complains nausea and vomiting first trimester discomforts. Patient is currently taking vitamins. Denies SAB complaints. Patient is does not want to go to [place] for MFM appointment and prefers ultrasound local. Ordered first trimester labs. NIPT, carrier screens drawn today. And schedule ultrasound at [facility] imaging for viability and dating. Discussed SAB precautions. Discussed comfort measures for first trimester discomforts. Return in 4 weeks 07/01/24 -?-?-?-?-?-?-?-?-?-?-?-?- 15w 4d 75.296 kg 127/78 absent unknown 18 155 active no ob complaints, nausea improved, sono pending AF P today, sono pending, patoent has dignity . prefers to do scan in [place]/transportation issue. sab precaution,increase fluid. rtc 4 week 08/11/24 -?-?-?-?-?-?-?-?-?-?-?-?- 21w 3d 77.111 kg 134/88 absent unknown 22 145 active fetus active. no SAB/PTL complaints,. no leaking or bleeding r/s sono at [facility], discuss PTL precaution, hydrate. 3rd tri labs 09/10/24 -?-?-?-?-?-?-?-?-?-?-?-?- 25w 5d 76.827 kg 124/80 absent unknown 25 143 active Reports positive movement. Denies leaking fluid. Denies bleeding at this time. Denies cramps at this time. Patient reports that she is trying to be compliant with the GDM diet. And she is checking her blood sugars 4 times a day. I asked patient about her results and patient reports that her sugars are above the expected normal goals the majority of the time. Consult with OB regarding blood sugar. Hemoglobin A1c today. And started on metformin 500 p.o. twice daily. I reviewed help to log sugars and the expected goals and I gave patient logs to write down her results. Patient will bring her results to see OB in 2 visits. Discussed labor precautions. Increase fluids. And I reviewed diet. With patient DEISY Calculator Estimated Delivery Date Method Current WG Current Estimate 12/19/24 Ultrasound #2 25w 5d Other Estimates 11/27/24 LMP (Uncertain) 28w 6d 12/17/24 Ultrasound #1 26w 0d 12/17/24 Manual 26w 0d wrong dates. ch kwaku dates to 12/19/24. sono Notes Visit Date: 09/10/24 Last Updated by: Vashti Peace CNM 09/10: 1hr gtt: 330 08/18/24 IUP 22w3. EDC: 12/19/24. COMPLETE PREVIA Visit Date: 08/11/24 Last Updated by: Vashti Peace CNM 08/11: O+,abs-, rpr;;nr, rub imm, HBSAG-,HIV-, HC-, GC/CT-, NIPT/AFP-, carrier screen- Office Procedures OB Clinic LOC & Office Proc's Nursing/Assessment Patient Status: Established Patient OB Clinic Nursing Assessment: Medication Reconciliation, Update PMH in EMR and Vital Signs OB Clinic Coordination of Care: Complex Care and Chronic Disease 1-5, Consent,records obtained, informed consent, Education Simp Pt/Fam and 4+ Authorizations needed Special Needs: Heart tones Established Patient Charge Established Patient Point Assignment: 130 Established Patient Point Charge: EP Level 4 (120-155) Assessment & Plan Diagnosis / Problem List (1) Diet controlled White classification A1 gestational diabetes mellitus (GDM): Status: Acute (2) Supervision of high risk , unspecified, second trimester: Status: Acute (3) Placenta previa: Status: Acute Qualifiers: Trimester: second trimester Qualified Code(s): O44.02 - Complete placenta previa NOS or without hemorrhage, second trimester Plan Reviewed 1 hour results with patient. I discussed GDM diet with patient again. I reviewed when to check blood sugars and I also reviewed how to log blood sugars. Patient was given logs with expected goals. Consulted MD regarding patient's blood sugars. Patient started on metformin 500 p.o. twice daily. Continue prenatals. Discussed labor precautions and ER precautions. Patient has an appointment with Dr. Irving October 07. However patient is having a hard time getting there because of transportation. Return in 2 weeks with OB. HGB A1c today Additional Plan Follow Up: 2 Weeks (obc)
== END 2024-09-10 15:55 | disposition home or self-care (01) ==
LOC: HODSOBC 14:44
PROVIDERS: Supervising Provider Advanced Practice Midwife; Visit Provider Advanced Practice Midwife
DX: O09.892 Supervision of other high risk pregnancies, second trimester (principal); O24.415 Gestational diabetes mellitus in pregnancy, controlled by oral hypoglycemic drugs; O44.02 Complete placenta previa NOS or without hemorrhage, second trimester; Z3A.25 25 weeks gestation of pregnancy
CPT/HCPCS: 99214; G0463

== ENCOUNTER 2024-09-15 10:03 | Outpatient (AMB) | payer MEDICAID, SELFPAY ==
--- NOTE | 2024-09-15 10:33 | AMB.OBVISIT ---
Vital Signs 09/15/24 10:34 Height 1.5 m Height Method Stated Weight 76.204 kg Weight Measurement Method Standing Scale BMI 33.8 BP 120/87 H Blood Pressure Source Automatic Cuff Blood Pressure Location Right Upper Arm Position Sitting Respiration 17 Pulse 76 Pulse Source Monitor Temp 98.0 F Temp Source Temporal Artery Scan Pulse Oximetry (%) 97 Oxygen Delivery Method Room Air Allergies/Home Meds Allergies & Medications Allergies No Known Allergies Allergy (Verified 09/15/24 10:36) Medication Reconciliation vitamins with calcium no.72-iron 29 mg-folic acid 1 mg tablet ( Plus) 1 tab PO QDAY 90 days #90 tabs 06/02/24 [Rx Confirmed 09/15/24] vitamin-ferrous fumarate 28 mg iron-folic acid 800 mcg tablet ( Vitamins with Minerals) 1 tab PO QDAY #60 tabs 08/11/24 [Rx Confirmed 09/15/24] blood sugar diagnostic (Blood Glucose Test strips) #10 ea 08/13/24 [Rx Confirmed 09/15/24] blood-glucose meter #1 ea 08/13/24 [Rx Confirmed 09/15/24] lancets #100 ea 08/13/24 [Rx Confirmed 09/15/24] metformin 500 mg tablet 500 mg PO BID #60 tabs 09/10/24 [Rx Confirmed 09/15/24] Intake Visit Data Collection New Patient or Established: Established Patient (seen at [facility] within 3 years) Reason for Visit:: OBC Seen by Clinical Staff ONLY (RN/MA): No Glass Cut Off Supervisor Required: Yes Glass Cut Off Supervisor's name/title: PHYLLIS Fowler MA Do You Feel Safe at Home: Yes Authorities Contacted: N/A PCP or OBGYN visit in last 3 months: Yes Date of Last PCP or OBGYN visit: 09/10/24 Hx Now: Yes Are you currently on any form of Control: No Pain Present Currently: No Pain Scale Used: Gold-Dominguez/Numerical Pain scale:: 0 Smoking Status Smoking Status: Never smoker Questionnaires Covid-19 Vaccine Questionnaire Has patient been vacinated for Covid-19 Have you been vacinated for Covid-19: No PHQ-9 PHQ-2 Over the last 2 weeks, how often have you been bothered by any of the following problems? 1. Little interest or pleasure in doing things: not at all 2. Feeling down, depressed, or hopeless: not at all Total score: 0 PHQ-9 3. Trouble falling or staying asleep, or sleeping too much: Not at all 4. Feeling tired or having little energy: Not at all 5. Poor appetite or overeating: Not at all 6. Feeling bad about yourself - or that you are a failure or have let yourself or your family down: Not at all 7. Trouble concentrating on things, such as reading the newspaper or watching television: Not at all 8. Moving or speaking so slowly that other people could have noticed? - Or the opposite - being so fidgety or restless that you have been moving around a lot more than usual: not at all 9. Thoughts that you would be better off or of hurting yourself in some way: Not at all Total score: 0 If you checked off any problems, how difficult have these problems made it for you to do your work, take care of things at home, or get along with other people?: not difficult at all Source: Developed by Drs. Yuval Collins, Vijaya Diaz, Kashif Villaseñor and colleagues, with an educational laila from [employer]. Depression screen completed yes Social History Living Situation History Marital Status: Lives With: Family Housing: House Tobacco History Smoking Status: Never smoker Second Hand Smoke Exposure: No Alcohol History Alcohol Intake: Never Domestic Abuse History Do You Feel Safe at Home: Yes [employer]BER: Past Medical History Past Medical History: No Hx Neurological Disorders, No Hx Breast Cancer, No Hx Cardiac Disorders, No Hx Cancer, No Hx Blood Disorders, No Hx Gastrointestinal Disorders, No Hx Renal Disease, No Hx Diabetes Mellitus Type 1 and No Hx Diabetes Mellitus Type 2 Care OB Visit Log OB Flowsheet Initial Weight: Not Recorded Date <del>?</del> EGA Weight BP Alb Glu CTX Pres Fundal ht FHR Mov Dilation Station Effacement Hx Notes Visit Note 06/02/24 <del>?</del> 11w 3d 74.191 kg 131/77 absent 12 176 active 33-year-old 3 para 2. Poor dates. Reports movement. Complains nausea and vomiting first trimester discomforts. Patient is currently taking vitamins. Denies SAB complaints. Patient is does not want to go to [place] for MFM appointment and prefers ultrasound local. Ordered first trimester labs. NIPT, carrier screens drawn today. And schedule ultrasound at [facility] imaging for viability and dating. Discussed SAB precautions. Discussed comfort measures for first trimester discomforts. Return in 4 weeks 07/01/24 <del>?</del> 15w 4d 75.296 kg 127/78 absent unknown 18 155 active no ob complaints, nausea improved, sono pending AFP today, sono pending, patoent has dignity . prefers to do scan in [place]/transportation issue. sab precaution,increase fluid. rtc 4 week 08/11/24 <del>?</del> 21w 3d 77.111 kg 134/88 absent unknown 22 145 active fetus active. no SAB/PTL complaints,. no leaking or bleeding r/s sono at [facility], discuss PTL precaution, hydrate. 3rd tri labs 09/10/24 <del>?</del> 25w 5d 76.827 kg 124/80 absent unknown 25 143 active Reports positive movement. Denies leaking fluid. Denies bleeding at this time. Denies cramps at this time. Patient reports that she is trying to be compliant with the GDM diet. And she is checking her blood sugars 4 times a day. I asked patient about her results and patient reports that her sugars are above the expected normal goals the majority of the time. Consult with OB regarding blood sugar. Hemoglobin A1c today. And started on metformin 500 p.o. twice daily. I reviewed help to log sugars and the expected goals and I gave patient logs to write down her results. Patient will bring her results to see OB in 2 visits. Discussed labor precautions. Increase fluids. And I reviewed diet. With patient 09/15/24 <del>?</del> 26w 3d 76.204 kg 120/87 absent unknown 26 145 Patient presents with severe hyperglycemia, with glucose levels at 400, inadequately controlled on metformin alone. Insulin therapy indicated. Placenta previa may necessitate delivery at 37 weeks if confirmed by specialist. Plan - Await authorization for maternal- medicine referral, expected by tomorrow - Schedule ultrasound with specialist for confirmation of placenta previa - Admit patient to hospital tomorrow at 8 AM for 24-hour insulin adjustment - Initiate insulin therapy due to high glucose levels (400) - Arrange home care nurse for insulin administration after discharge - Follow up in 2 weeks - Patient to return immediately if any bleeding occurs - Tentative plan for at 37 weeks if placenta previa is confirmed DEISY Calculator Estimated Delivery Date Method Current WG Current Estimate 12/19/24 Ultrasound #2 26w 3d Other Estimates 11/27/24 LMP (Uncertain) 29w 4d 12/17/24 Ultrasound #1 26w 5d 12/17/24 Manual 26w 5d wrong dates. change dates to 12/19/24. sono Notes Visit Date: 09/10/24 Last Updated by: Vashti Peace CNM 09/10: 1hr gtt: 330 08/18/24 IUP 22w3. EDC: 12/19/24. COMPLETE PREVIA Visit Date: 08/11/24 Last Updated by: Vashti Peace CNM 08/11: O+,abs-, rpr;;nr, rub imm, HBSAG-,HIV-, HC-, GC/CT-, NIPT/AFP-, carrier screen- Office Procedures OB Clinic LOC & Office Proc's Nursing/Assessment Patient Status: Established Patient OB Clinic Nursing Assessment: Medication Reconciliation, Update PMH in EMR and Vital Signs OB Clinic Coordination of Care: Complex Care and Chronic Disease 1-5, Consent,records obtained, informed consent, Education Simp Pt/Fam, Results/Orders obtained and Staff clarify orders Special Needs: Heart tones Established Patient Charge Established Patient Point Assignment: 120 Established Patient Point Charge: EP Level 4 (120-155) Assessment & Plan Diagnosis / Problem List (1) Poorly controlled type 2 diabetes mellitus: Status: Acute (2) Type 2 diabetes mellitus affecting in third trimester, antepartum: Status: Acute
[2024-09-15 10:34] VITALS: BP 120/87; PULSE 76; RESP 17; TEMP 36.7; O2SAT 97; BMI 33.8
== END 2024-09-15 10:51 | disposition home or self-care (01) ==
PROVIDERS: Supervising Provider Obstetrics & Gynecology; Visit Provider Obstetrics & Gynecology
DX: O09.892 Supervision of other high risk pregnancies, second trimester (principal); O24.112 Pre-existing type 2 diabetes mellitus, in pregnancy, second trimester; E11.65 Type 2 diabetes mellitus with hyperglycemia; Z3A.26 26 weeks gestation of pregnancy; Z79.84 Long term (current) use of oral hypoglycemic drugs
CPT/HCPCS: 99214; G0463

== ENCOUNTER 2024-09-16 08:35 | Inpatient (IN) | payer MEDICAID, SELFPAY ==
[2024-09-16] VITALS (27 sets, daily range): BP systolic 105–122; BP diastolic 66–78; PULSE 66–84; RESP 18–99; TEMP 36.7; O2SAT 97–100; BMI 36.2; BMI 36.4
--- NOTE | 2024-09-16 08:52 | XR_ITS ---
Examination: Complete OB ultrasound greater than 14 weeks Date and time of exam: September 16, 2024 1153 hours INDICATIONS: History placenta previa Findings: Viable intrauterine single fetus with single amniotic sac presentation cephalic Cardiac motion 152 BPM Placenta posterior complete previa Umbilical cord insertion 3 vessel seen. Amniotic fluid index 19.4 cm spine maternal right Cervix 3.1 cm Right ovary 3.3 cm arterial flow Left ovary 3.9 cm arterial flow. Composite estimated gestational age based on BPD, head circumference, abdominal circumference, femur length is 25 weeks 3 days Estimated weight 811 g. Survey of intracranial anatomy, spinal anatomy, abdominal anatomy, four-chamber heart performed with no abnormalities identified. Impression: Viable intrauterine gestation cephalic presentation.
[2024-09-16 09:50] LABS: Basophils # (Auto) 0.0 Thou/mm3 (0.0-0.2); Basophils % (Auto) 0 % (0-2.5); Eosinophils # (Auto) 0.1 Thou/mm3 (0.0-0.5); Eosinophils % (Auto) 1 % (0-10); Hematocrit 36.8 % (36.0-46.0); Hemoglobin 12.5 g/dL (12.0-16.0); Immature Granulocytes Auto 0.02 Thou/mm3 (0.00-0.00); Lymphocytes # (Auto) 2.3 Thou/mm3 (1.0-4.8); Lymphocytes % (Auto) 35 % (10-50); Mean Corpuscular HGB Conc 34.0 g/dl (31.0-37.0); Mean Corpuscular Hemoglobin 32.1 pg (25.0-35.0); Mean Corpuscular Volume 95 fL (80-100); Monocytes # (Auto) 0.4 Thou/mm3 (0.0-0.8); Monocytes % (Auto) 6 % (0-12); Neutrophils # (Auto) 3.8 Thou/mm3 (1.8-7.7); Neutrophils % (Auto) 57 % (37-80); Nucleated Red Blood Cell # 0.00 Thou/mm3 (0.00-0.00); Nucleated Red Blood Cell % 0 /100 WBC (0); Platelet Count 298 Thou/mm3 (140-440); RDW Standard Deviation 44.3 fL (36.4-46.3); Red Blood Count 3.89 Miln/mm3 (4.00-5.20); White Blood Count 6.7 Thou/mm3 (3.6-11.0)
[2024-09-16 10:07] LABS: Alanine Aminotransferase 18 U/L (10-49); Albumin, Serum 3.7 gm/dL (3.5-5.0); Albumin/Globulin Ratio 1.5 (1.2-2.2); Alkaline Phosphatase 101 U/L (46-116); Anion Gap 13 (7-16); Aspartate Amino Transferase 26 U/L (0-34); BUN/Creatinine Ratio 11 Ratio (12-20); Bilirubin,Total 0.2 mg/dL (0.3-1.2); Blood Urea Nitrogen 11 mg/dL (9-23); Calcium 9.0 mg/dL (8.3-10.6); Calcium (Corrected) 9.2 mg/dL (8.5-10.1); Carbon Dioxide 18.0 mMol/L (20.0-31.0); Chloride 104 mMol/L (98-107); Creatinine (Component) 1.0 mg/dL (0.6-1.3); Estimated Creatinine Clearance 72.1 mL/min (>60); Globulin 2.4 gm/dL (2.3-3.5); Glucose 390 mg/dL (74-106); Osmolality,Calculated 285 (275-295); Potassium 4.2 mMol/L (3.4-5.1); Sodium 135 mMol/L (136-145); Total Protein 6.1 gm/dL (5.7-8.2); eGFR > 60 See Note
[2024-09-16] MEDS: INSULIN GLARGINE (Lantus) 5 UNIT/0.05 ML (PER 5 UNITS) 40 UNIT SC (10:21)
[2024-09-16] MEDS: INSULIN LISPRO (AdmeLOG) 1 UNIT/0.01 ML UNIT SC ×3 (10:22→18:52)
[2024-09-16] MEDS: RINGERS LACTATED 1000 ML 1,000 ML 999 ML IV (10:40)
[2024-09-16] MEDS: INSULIN LISPRO (AdmeLOG) 1 UNIT/0.01 ML UNIT 10 UNIT SC ×3 (12:33→21:04)
[2024-09-16] MEDS: SODIUM CHLORIDE 0.9% 1000 ML 1,000 ML 999 ML IV (21:52)
[2024-09-16] MEDS: SODIUM CHLORIDE 0.9% 1000 ML 1,000 ML 125 ML IV (23:09)
[2024-09-17] VITALS (146 sets, daily range): BP systolic 112–123; BP diastolic 75–78; PULSE 60–101; RESP 16–18; TEMP 36.6–37; O2SAT 85–99
[2024-09-17] MEDS: INSULIN LISPRO (AdmeLOG) 1 UNIT/0.01 ML UNIT 10 UNIT SC ×4 (07:29→21:03)
[2024-09-17] MEDS: SODIUM CHLORIDE 0.9% 1000 ML 1,000 ML 125 ML IV ×2 (07:38→16:40)
[2024-09-17] MEDS: INSULIN LISPRO (AdmeLOG) 1 UNIT/0.01 ML UNIT SC ×3 (09:14→19:02)
[2024-09-17 10:47] LABS: Glucose Estimated Average 235 mg/dL (80-131); Hemoglobin A1C 9.8 % Hgb (4.8-6.0)
[2024-09-17 11:21] LABS: Syphilis Nonreactive (Nonreactive)
[2024-09-17] MEDS: INSULIN GLARGINE (Lantus) 5 UNIT/0.05 ML (PER 5 UNITS) 40 UNIT SC (11:42)
[2024-09-17 11:47] LABS: Protein Total, Urine Volume 3675 mL/24hr (600-1800)
[2024-09-17 11:53] LABS: Protein Total, 24 hr Urine 294 mg/24hr (<149); Protein Total, Urine 8 mg/dL (1-14)
--- NOTE | 2024-09-17 14:58 | PD.LDANTE ---
Documentation for date of: 09/16/24 OB Labor/Induct. HPI History of Present Illness Chief complaint: Glycemic management : 3 Para: 2 Term pregnancies: 2 pregnancies: 0 Living children: 2 History of Abortions: Spontaneous and Elective: 0 History of Vaginal deliveries: 2 History of sections: No History of : No DEISY: 12/19/24 Gestational Age (weeks): 26 Gestational Age (days): 4 History of present illness: 33-year-old 3 para 2 at 26 weeks and 4 days her is dated by uncertain LMP so her dating is based on a 22-week ultrasound who is presenting here today after being sent in from the office by myself for glycemic management. Patient first came into contact with me during recent triage visit where she was also identified to have a complete posterior placenta previa. At the time she had presented with uterine bleeding which has since resolved. Patient is aware of all the precautions that she needs to follow. During testing she was noted to have severely elevated blood sugars with postprandials as high as 400 and a hemoglobin A1c of 9.7. Patient was referred to Dr. Bertha Irving, maternal- medicine specialist for confirmation of placenta previa as well as to rule out other placental abnormalities. Patient is also awaiting insurance authorization for home health service to help her with insulin and diabetic management History of Present Dating criteria: based on 2nd trimester US only Adequate Care: Yes Labs Labs: Unknown: RPR, Hepatitis B, Rubella Titre, HIV, Chlamydia, Gonorrhea, Herpes Type 1, Herpes Type 2, Group Beta Strep and Covid-19 Past Medical History Surgical History SURGICAL: Negative Section Meds Home Medications and Allergies Allergies Allergy/AdvReac Type Severity Reaction Status Date / Time No Known Allergies Allergy Verified 09/16/24 16:27 OB Exam Physical Exam Vital signs: Temp Pulse Resp BP Pulse Ox O2 Del Method 98.2 F 63 16 112/78 98 Room Air 09/17/24 08:00 09/17/24 03:56 09/17/24 08:00 09/17/24 03:56 09/17/24 14:57 09/16/24 09:00 Constitutional Constitutional: no acute distress Routine HEENT Exam Head: Present normocephalic and atraumatic Eye: Present EOMI and PERRL ENT: Present mucous membranes moist Routine Neck Exam Neck: Present supple and trachea midline Routine Cardiovascular Exam Cardiovascular: Present RRR Routine Abdominal Exam Abdominal: Present soft and normoactive bowel sounds Routine Extremities Exam Extremities: Present full ROM Routine Skin Exam Skin: Present intact, dry and warm Routine Neurological Exam Neurological: Present alert, oriented X3 and CN II-XII intact Routine Psychiatric Exam Psychiatric: Present normal affect and normal thought process OB Results Labs 09/16/24 09:10 09/16/24 09:10 OB Assessment & Plan Assessment and Plan (1) Type 2 diabetes mellitus affecting in third trimester, antepartum: Status: Acute (2) Poorly controlled type 2 diabetes mellitus: Status: Acute Assessment and plan: Admit to observation status for inpatient diabetic management Continuous monitoring, complete OB ultrasound Start her on insulin 40 units of Lantus nightly and Humalog 15 units 3 times daily additional sliding scale insulin as needed for correction Patient has fingersticks ordered for fasting, 2-hour postprandial Once insulin doses are optimized anticipate discharge home for outpatient follow-up with MFM as well as for care
--- NOTE | 2024-09-17 21:03 | PD.ADDPROG ---
Addendum Progress Note Addendum Date of report being addended: 09/17/24 Narrative: The patient is a 33-year-old -0-0-2 at 26-4/[address] Farah for diabetic control. She is currently on 40 units of long-acting insulin in the morning and 15 units of short acting per meal. A consult for Dr. Ernesto Farnsworth was placed for diabetic counseling tomorrow and to show the patient how to administer her insulin. She states she was diagnosed with prediabetes in [place] 2 years ago. She was really not on diabetic medication before . Today the patient is resting comfortably with her at bedside. She has 2 teenage children. We did discuss the fact that she will need a at delivery and that her hemoglobin A1c was 9.8. Patient understands the seriousness of both situations. She would like to ambulate. The baby looks appropriate for gestational age on the monitor with 10 x 10 beat accelerations. The patient can ambulate. I am going to add 15 units of long-acting insulin tonight. Patient may go home possibly tomorrow after her consult with Dr. Ernesto Farnsworth. Her blood sugars were in the 300 range when she got here now they are in the 180-200 range. Her 24-hour urine did result at 294. The patient and her state this was a surprise . They have children around 14 and 15 at home. I did mention the fact that she is going to get a and she could have a tubal ligation at the same time but they need to sign paperwork at least 30 days in advance. Both the patient and her want to discuss this amongst themselves further. Multiple questions were asked by the spouse about how safe a tubal ligation is how it is performed and if it is reversible. They will discuss this further in the office with Dr. Farah.
[2024-09-18] VITALS (41 sets, daily range): BP systolic 107–123; BP diastolic 60–81; PULSE 56–202; RESP 14–18; TEMP 36.6–36.8; O2SAT 83–100; BMI 36.4
[2024-09-18] MEDS: INSULIN LISPRO (AdmeLOG) 1 UNIT/0.01 ML UNIT 10 UNIT SC (07:42)
[2024-09-18 08:47] LABS: Basophils # (Auto) 0.0 Thou/mm3 (0.0-0.2); Basophils % (Auto) 0 % (0-2.5); Eosinophils # (Auto) 0.1 Thou/mm3 (0.0-0.5); Eosinophils % (Auto) 1 % (0-10); Hematocrit 39.4 % (36.0-46.0); Hemoglobin 13.3 g/dL (12.0-16.0); Immature Granulocytes Auto 0.03 Thou/mm3 (0.00-0.00); Lymphocytes # (Auto) 2.7 Thou/mm3 (1.0-4.8); Lymphocytes % (Auto) 34 % (10-50); Mean Corpuscular HGB Conc 33.8 g/dl (31.0-37.0); Mean Corpuscular Hemoglobin 31.4 pg (25.0-35.0); Mean Corpuscular Volume 93 fL (80-100); Monocytes # (Auto) 0.5 Thou/mm3 (0.0-0.8); Monocytes % (Auto) 6 % (0-12); Neutrophils # (Auto) 4.7 Thou/mm3 (1.8-7.7); Neutrophils % (Auto) 59 % (37-80); Nucleated Red Blood Cell # 0.00 Thou/mm3 (0.00-0.00); Nucleated Red Blood Cell % 0 /100 WBC (0); Platelet Count 299 Thou/mm3 (140-440); RDW Standard Deviation 44.6 fL (36.4-46.3); Red Blood Count 4.23 Miln/mm3 (4.00-5.20); White Blood Count 7.9 Thou/mm3 (3.6-11.0)
[2024-09-18 09:24] LABS: Alanine Aminotransferase 17 U/L (10-49); Albumin, Serum 3.9 gm/dL (3.5-5.0); Albumin/Globulin Ratio 1.4 (1.2-2.2); Alkaline Phosphatase 97 U/L (46-116); Anion Gap 13 (7-16); Aspartate Amino Transferase 37 U/L (0-34); BUN/Creatinine Ratio 14 Ratio (12-20); Bilirubin,Total 0.3 mg/dL (0.3-1.2); Blood Urea Nitrogen 7 mg/dL (9-23); Calcium 9.5 mg/dL (8.3-10.6); Calcium (Corrected) 9.6 mg/dL (8.5-10.1); Carbon Dioxide 18.3 mMol/L (20.0-31.0); Chloride 109 mMol/L (98-107); Creatinine (Component) 0.5 mg/dL (0.6-1.3); Estimated Creatinine Clearance 140.6 mL/min (>60); Globulin 2.7 gm/dL (2.3-3.5); Glucose 150 mg/dL (74-106); Magnesium 1.8 mg/dL (1.6-2.6); Osmolality,Calculated 280 (275-295); Phosphorous 4.7 mg/dL (2.4-5.1); Potassium 3.7 mMol/L (3.4-5.1); Sodium 140 mMol/L (136-145); Total Protein 6.6 gm/dL (5.7-8.2); eGFR > 60 See Note
--- NOTE | 2024-09-18 10:05 | ESPR_ITS ---
Documentation for date of: 09/18/24 SPECIAL PROCEDURE TECH Subjective Subjective Interval history: Patient doing well this morning. Adequate glycemic control based on the current insulin regimen Patient was also seen by internal medicine and verbally they agree with the plan. Nutrition consult is still pending. Exam Vital Signs Temp Pulse Resp BP Pulse Ox O2 Del Method 98.3 F 56 L 18 123/81 96 Room Air 09/18/24 07:10 09/18/24 07:10 09/18/24 07:10 09/18/24 07:10 09/18/24 09:19 09/16/24 09:00 Constitutional Constitutional: no acute distress Routine HEENT Exam Head: Present normocephalic and atraumatic Eye: Present EOMI and PERRL ENT: Present mucous membranes moist Routine Neck Exam Neck: Present supple and trachea midline Routine Respiratory Exam Respiratory: Present chest non-tender, lungs clear, normal breath sounds and no resp distress Routine Cardiovascular Exam Cardiovascular: Present RRR Routine Abdominal Exam Abdominal: Present soft and normoactive bowel sounds Routine Extremities Exam Extremities: Present full ROM Routine Skin Exam Skin: Present intact and dry Routine Neurological Exam Neurological: Present alert, oriented X3 and CN II-XII intact Routine Psychiatric Exam Psychiatric: Present normal affect and normal thought process Urinary Catheter Management Cath placed during this visit: no SPECIAL PROCEDURE TECH - PN: Obj Data Labs 09/18/24 08:00 09/18/24 08:00 Labs: Laboratory Results - last 24 hr 09/17/24 09/17/24 09/18/24 10:19 11:00 08:00 WBC 7.9 RBC 4.23 Hgb 13.3 Hct 39.4 MCV 93 MCH 31.4 MCHC 33.8 RDW Std Deviation 44.6 Plt Count 299 Neut % (Auto) 59 Lymph % (Auto) 34 Pratt % (Auto) 6 Eos % (Auto) 1 Baso % (Auto) 0 Neut # (Auto) 4.7 Lymph # (Auto) 2.7 Pratt # (Auto) 0.5 Eos # (Auto) 0.1 Baso # (Auto) 0.0 Immature Gran # (Auto) 0.03 H Absolute Nucleated RBC 0.00 Immature Gran % 0 Nucleated RBC % 0 Sodium 140 Potassium 3.7 D Chloride 109 H Carbon Dioxide 18.3 L Anion Gap 13 BUN 7 L Creatinine 0.5 L D Estim Creat Clear Calc 140.6 eGFR > 60 BUN/Creatinine Ratio [address] Glu mg/dL 235 H Hemoglobin A1c 9.8 H Calculated Osmolality 280 Calcium 9.5 Corrected Calcium 9.6 Phosphorus 4.7 Magnesium 1.8 Total Bilirubin 0.3 AST 37 H ALT 17 Alkaline Phosphatase 97 Total Protein 6.6 Albumin 3.9 Globulin 2.7 Albumin/Globulin Ratio 1.4 Urine Total Volume 3675 H U Total Protein mg/dL 8 Ur Total Protein 24 Hr 294 H Syphilis Serology Nonreactive Blood Type O Positive Antibody Screen NEGATIVE Blood Bank Wristband ID Yes SPECIAL PROCEDURE TECH - A/P Assessment and plan (1) Type 2 diabetes mellitus affecting in third trimester, antepartum: Status: Acute (2) Poorly controlled type 2 diabetes mellitus: Status: Acute Assessment and plan: 33-year-old 3 para 2 admitted for inpatient glycemic control. Plan to discharge home today. Patient has been set up for home health and all her diabetic testing supplies as well as insulin has been prescribed. She also has a stat MFM consult pending for placenta previa which is pending insurance approval She will follow-up within 1 to 2 weeks as outpatient in the office. Pelvic rest and placenta previa precautions were also once again reviewed with the patient. Time Spent With Patient Time: Total time spent is greater than 50% in coordination of care (as documented) at patient's floor/unit and/or counseling patient: Time with patient: less than 15 minutes
--- NOTE | 2024-09-18 10:07 | ESDS_ITS ---
DS: Providers Provider Date of admission: 09/17/24 08:13 Primary care physician: Physician No Primary/Family Admitting Provider: Carlos Farah MD Attending Provider on Admission: Carlos Farah MD Consults: 09/17/24 20:21 Referral Nutritional Services Stat Comment: Diabetes 09/17/24 20:25 Consult to Adult Hospitalist Stat Comment: Diabetic consult, insulin education Consulting Provider: Ernesto Farnsworth Attending Provider on DC: Carlos Farah MD Discharging Provider: Carlos Farah MD DS: Diagnosis Discharge Diagnosis (1) Type 2 diabetes mellitus affecting in third trimester, antepartum: Status: Acute (2) Poorly controlled type 2 diabetes mellitus: Status: Acute (3) Placenta previa: Status: Acute Problem List Completed Was Problem List Reviewed/Reconciled?: Yes Summary/Hosp Course Brief History: Patient doing well this morning. Adequate glycemic control based on the current insulin regimen Patient was also seen by internal medicine and verbally they agree with the plan. Nutrition consult is still pending. Time Spent with Patient Time attestation: Total time spent providing and/or coordinating discharge services: Exam Vital Signs Temp Pulse Resp BP Pulse Ox O2 Del Method 98.3 F 56 L 18 123/81 96 Room Air 09/18/24 07:10 09/18/24 07:10 09/18/24 07:10 09/18/24 07:10 09/18/24 09:19 09/16/24 09:00 Discharge Plan Plan Patient Disposition: HOME (Self Care) Patient condition on transfer: Stable Prescriptions/Referrals Prescriptions/Med Rec: Continued vit-iron fum-folic ac [ Vitamin with Minerals] 28 mg iron- 800 mcg tablet 1 tab PO QDAY Qty: 60 3RF Plus 29 mg iron- 1 mg tablet 1 tab PO QDAY 90 Days Qty: 90 3RF insulin glargine [Basaglar KwikPen U-100 Insulin] 100 unit/mL (3 mL) insulin pen 40 unit subcut QPM 30 Days Qty: 12 3RF insulin lispro [Humalog KwikPen Insulin] 100 unit/mL insulin pen 15 unit subcut TID 30 Days Qty: 15 3RF (DME) pen needle, diabetic 29 gauge x 1/2 needle See Rx Instructions .MEDSUPPLY Qty: 100 2RF Rx Instructions: As directed, four times a day (DME) blood-glucose meter Kit See Rx Instructions .MEDSUPPLY Qty: 1 0RF Rx Instructions: As directed (DME) Blood Glucose Test Strip See Rx Instructions .MEDSUPPLY Qty: 10 0RF Rx Instructions: As directed (DME) lancets Misc See Rx Instructions .MEDSUPPLY Qty: 100 0RF Rx Instructions: As directed Discontinued metformin 500 mg tablet 500 mg PO BID Qty: 60 2RF Referrals: Carlos Farah MD [Physician] - No Primary/Family,Physician [Primary Care Provider] - Patient/Caregiver Discharge Instructions Meds to Beds: Yes Discharge Activity: activity as tolerated Education Materials: Using a Blood Sugar Log, Concerns When with ..., CGM, High Blood Sugar (Hyperglycemia), Placenta Previa, Diabetes Carbs Fats Protein, Understanding Type 2 Diabetes, Insulin Injection Steps Print Language: Indonesian Stand Alone Forms: Hanane Award Info., Patient Portal Info Letter Discharge Order Discharge Orders: Discharge (Routine); Ordered 09/18/24 Ordered By: Carlos Farah Planned Discharge Date 09/18/24 (3) Placenta previa Qualifiers: Trimester: second trimester Qualified Code(s): O44.02 - Complete placenta previa NOS or without hemorrhage, second trimester
[2024-09-18] MEDS: INSULIN DEGLUDEC 5 UNIT/0.05 ML (PER 5 UNITS) 40 UNIT SC (10:41)
--- NOTE | 2024-09-18 13:31 | ESCONSULT_ITS ---
<Statement entered by Wei Mckinley MD - 10/03/24 15:04> I reviewed above note and agree with findings and plans. I have also personally examined the patient with medicine team and went over assessment and plan with medical team including it intern and resident physician. <Statement entered by Mary Cornejo MD - 09/18/24 16:03> Patient seen at bedside patient is seen on the fourth floor currently 27 weeks gestation, . Patient states she recently moved here from [place] where she was diagnosed with prediabetes not on medication however patient has not followed up with her primary care and during this patient was diagnosed with gestational diabetes. Routine follow-up with her OB appointment patient was found to have blood glucose above 400 and A1c of 9.8. Currently patient's glucose is stable at 140 and patient is discharged home on Lantus 40 units with Humalog 15 units 3 times daily. Patient is given appropriate diabetes education material as well as dietitian counseling on how to manage her diabetes. Patient will closely follow-up with her OBGYN. Patient was seen and examined by me personally. I have directly supervised and reviewed documentation by the team resident and agree with its findings. ------- Plan of care was discussed with the attending, Dr. Arlen Cornejo, PGY-2 HPI Data of Consult Requesting Physician: Carlos Farah MD Admitting Provider: Carlos Farah MD Attending Provider: Carlos Farah MD Primary Care Provider: Physician No Primary/Family Consult Narrative Reason for consult: Management of gestational diabetes History of present illness: 37-year-old female at 27 weeks past medical history of prediabetes, hyperlipidemia presented to [facility] on 09/17/[address] Farah [facility] clinic for diabetic control. During OB visit she was noted to have a significant increase postprandial glucose in the 400s, and A1c of 9.8 and was sen to the hospital. Patient reports a new diagnosis of gestational diabetes for G3 and indicates that she is not currently taking any medication for glucose control. She also attributes her increase glycemic level to recent increase craving for fast food.She endorses mild fatigue, but denies shortness of breath, nausea, vomiting, excessive thirst, urinary symptoms. Significant labs 09/16: glucose level readings fluctuated between 311, 299, 255 at am - 194,144,142,223 at pm. 09/17: 142 at am - 192 at pm 09/18 : glucose is 149 Bicarb of 18.3, 0.7, Cr 0.5, AST 37, urine total volume was 3675, urine total protein 24 hr 294, Hospitalist team was consulted for management of gestational diabetes. Past medical history: Prediabetes (dx in [place]), hyperlipidemia, complete placenta previa Family history: noncontributory Social history: denies history of smoking, denies alcohol use, denies recreational drug use. Allergies: No known drug allergies cc:: cc: Carlos Farah MD Exam Vital Signs Temp Pulse Resp BP Pulse Ox O2 Del Method 98.3 F 68 18 116/73 96 Room Air 09/18/24 07:10 09/18/24 13:27 09/18/24 07:10 09/18/24 13:27 09/18/24 09:19 09/16/24 09:00 Narrative Exam Physical Exam General: Awake and in no acute distress. Conversational and non-toxic appearing. HEENT: Normocephalic, atraumatic, mucous membranes moist. Heart: Regular rate and rhythm, normal S1 and S2, no murmurs. Lungs: Clear to auscultation with no wheezing or crackles. Abdomen: Soft, nondistended, nontender, positive bowel sounds. ?No guarding or rebound tenderness. Neurologic: Alert and oriented x3, no gross neurological deficit, and patient able to move all 4 extremities. Extremities: No edema. Skin: No rash or ecchymoses. Results Labs 09/18/24 08:00 09/18/24 08:00 Labs: Short CBC 09/18/24 Range/Units 08:00 WBC 7.9 (3.6-11.0) Thou/mm3 Hgb 13.3 (12.0-16.0) g/dL Hct 39.4 (36.0-46.0) % Plt Count 299 (140-440) Thou/mm3 BMP 09/18/24 08:00 Sodium 140 Potassium 3.7 D Chloride 109 H Carbon Dioxide 18.3 L BUN 7 L Creatinine 0.5 L D Glucose 150 H D Calcium 9.5 Liver Function 09/18/24 Range/Units 08:00 Total Bilirubin 0.3 (0.3-1.2) mg/dL AST 37 H (0-34) U/L ALT 17 (10-49) U/L Alkaline Phosphatase 97 (46-116) U/L Albumin 3.9 (3.5-5.0) gm/dL Quality Measures Quality Measures none Medications Home Medications and Allergies Allergies Allergy/AdvReac Type Severity Reaction Status Date / Time No Known Allergies Allergy Verified 09/16/24 16:27 Visit Medications Benzocaine (Benzo/Lano/Aloe (Dermoplast) 60 Gm Can) 1 spray TOP PRN PRN PRN Reason: PERINEAL DISCOMFORT Stop: 10/17/24 08:12 Dextrose (Dextrose 50%-Water Inj 50 Ml Syringe) 25 ml IV Q15MIN PRN PRN Reason: BG 50-70 responsive npo pt Stop: 10/16/24 08:51 Dextrose (Dextrose 50%-Water Inj 50 Ml Syringe) 50 ml IV Q15MIN PRN PRN Reason: BG <50 OR BG <70 & pt unresponsive Stop: 10/16/24 08:51 Fentanyl Citrate (Fentanyl Cit Inj 50 Mcg/Ml Amp 2ml) 100 mcg IVP Q1HR PRN PRN Reason: PAIN SCALE 4-6 (Moderate Stop: 09/22/24 08:12 Glucagon (Glucagon Inj 1 Mg Vial) 1 mg IM Q15MIN PRN PRN Reason: BG <70, and no IV access Sodium Chloride (Ns) 1,000 mls @ 125 mls/hr IV .Q8H [facility] Stop: 10/16/24 21:14 Last Admin: 09/17/24 20:54 Dose: Not Given Tranexamic Acid (Tranexamic Acid Ivpb) 1,000 mg in 100 mls @ 200 mls/hr IV PRNMRX1 PRN PRN Reason: BLEEDING Oxytocin/Sodium Chloride (Pitocin 20 Units In Ns) 20 unit in 1,000 mls @ 125 mls/hr IV .Q8H [facility] Stop: 10/17/24 08:14 Ibuprofen (Ibuprofen Tab 400 Mg Tablet) 800 mg PO X1 PRN PRN Reason: uterine cramping Insulin Degludec (Insulin Degludec 5 Unit/0.05 Ml (Per 5 Units)) 40 unit SC QDAY FLY Stop: 10/16/24 08:59 Last Admin: 09/18/24 10:41 Dose: 40 unit Insulin Degludec (Insulin Degludec 5 Unit/0.05 Ml (Per 5 Units)) 15 unit SC HS [facility] Stop: 10/18/24 20:59 Insulin Human Lispro (Insulin Lispro (Admelog) 1 Unit/0.01 Ml Unit) 10 unit SC ACHS [facility] Stop: 10/16/24 11:29 Last Admin: 09/18/24 07:42 Dose: 10 unit Insulin Human Lispro (Insulin Lispro (Admelog) 1 Unit/0.01 Ml Unit) 0 unit SC PC [facility]; Protocol Stop: 10/16/24 11:29 Last Admin: 09/17/24 19:02 Dose: 2 unit Lidocaine HCl (Lidocaine Hcl 1% 20 Ml Vial) 20 ml INFL X1 PRN PRN Reason: EPISIOTOMY PAIN Methylergonovine Maleate (Methylergonovine Inj 0.2 Mg/Ml Vial) 0.2 mg IM X1 PRN PRN Reason: Excessive Bleeding Mineral Oil (Mineral Oil 30 Ml Udc) 30 ml TOP PRN PRN PRN Reason: To perineum for delivery. Stop: 10/17/24 08:12 Misoprostol (Misoprostol 200 Mcg Tablet) 800 mcg AR X1 PRN PRN Reason: BLEEDING Oxytocin (Oxytocin Inj 10 Unit/Ml Vial) 10 unit IM X1 PRN PRN Reason: After placenta delivers Discontinued Medications Lactated Ringer's (Lactated Ringers) 1,000 mls @ 999 mls/hr IV .Q1H1M ONE Stop: 09/16/24 11:37 Last Admin: 09/16/24 10:40 Dose: 999 mls/hr Sodium Chloride (Ns) 1,000 mls @ 999 mls/hr IV .Q1H1M ONE Stop: 09/16/24 22:18 Last Admin: 09/16/24 21:52 Dose: 999 mls/hr Sodium Chloride (Ns) 1,000 mls @ 125 mls/hr IV .Q8H ONE Stop: 09/17/24 05:17 Last Admin: 09/16/24 23:09 Dose: 125 mls/hr Insulin Degludec (Insulin Degludec 5 Unit/0.05 Ml (Per 5 Units)) 15 unit SC QDAY [facility] Stop: 10/18/24 08:59 Insulin Glargine (Insulin Glargine (Lantus) 5 Unit/0.05 Ml (Per 5 Units)) 40 unit SC QDAY [facility] Stop: 10/16/24 08:59 Last Admin: 09/17/24 11:42 Dose: 40 unit Insulin Human Lispro (Insulin Lispro (Admelog) 1 Unit/0.01 Ml Unit) 0 unit SC AC [facility]; Protocol Stop: 10/16/24 11:29 Last Admin: 09/16/24 10:22 Dose: 5 unit Assessment & Plan Plan 37-year-old female at 26 weeks past medical history of prediabetes, hyperlipidemia presented to [facility] on 09/17/[address] Farah [facility] clinic for diabetic control. Hospitalist consulted for glycemic management. # Gestational diabetes mellitus in setting of # On admission glucose was 390 and A1C 9.8. Patient states history of Pre-diabetes, but takes no medication. Currently patient is 27 weeks old . Plan - Diabetes mellitus education - Dietitian was consulted - Advised patient to closely monitor fingerstick glucose with Accu-Chek - Counseled to maintain dietary control - Discharge patient on Lantus 40 units, lispro 15 TID Patient seen and assessed under supervision of attending physician Dr. Mckinley and discuss with senior resident Dr. Cornejo PGY-2 Milagro Wilson MD PGY-1, Internal Medicine
== END 2024-09-18 13:42 | disposition home or self-care (01) | DRG 566 ==
PROVIDERS: Obstetrics & Gynecology; Admitting Provider Obstetrics & Gynecology; Visit Provider Obstetrics & Gynecology
DX: O24.112 Pre-existing type 2 diabetes mellitus, in pregnancy, second trimester (principal); E11.65 Type 2 diabetes mellitus with hyperglycemia; O44.02 Complete placenta previa NOS or without hemorrhage, second trimester; Z3A.26 26 weeks gestation of pregnancy; O99.282 Endocrine, nutritional and metabolic diseases complicating pregnancy, second trimester; E78.5 Hyperlipidemia, unspecified
CPT/HCPCS: 36415; 59025; 59899; 76805; 80053; 83036; 83735; 84100; 84156; 84550; 85025; 85384; 85610; 85730; 86780; 86850; 86900; 86901; J1815; J7030; J7120

== ENCOUNTER 2024-09-23 13:00 | Outpatient (AMB) | payer MEDICAID, SELFPAY ==
[2024-09-23 13:10] VITALS: BP 129/84; PULSE 68; RESP 17; TEMP 36.4; O2SAT 98; BMI 35.9
--- NOTE | 2024-09-23 13:10 | OBCLNT_ITS ---
Vital Signs 09/23/24 13:10 Height 1.47 m Height Method Measured Weight 77.564 kg Weight Measurement Method Standing Scale BMI 35.9 BP 129/84 Blood Pressure Source Automatic Cuff Blood Pressure Location Right Upper Arm Position Sitting Respiration 17 Pulse 68 Pulse Source Monitor Temp 97.6 F Temp Source Temporal Artery Scan Pulse Oximetry (%) 98 Oxygen Delivery Method Room Air Allergies/Home Meds Allergies & Medications Allergies No Known Allergies Allergy (Verified 09/28/24 10:06) Medication Reconciliation vitamins with calcium no.72-iron 29 mg-folic acid 1 mg tablet ( Plus) 1 tab PO QDAY 90 days #90 tabs 06/02/24 [Rx Confirmed 09/28/24] vitamin-ferrous fumarate 28 mg iron-folic acid 800 mcg tablet ( Vitamins with Minerals) 1 tab PO QDAY #60 tabs 08/11/24 [Rx Confirmed 09/28/24] blood sugar diagnostic (Blood Glucose Test strips) #10 ea 08/13/24 [Rx Confirmed 09/28/24] blood-glucose meter #1 ea 08/13/24 [Rx Confirmed 09/28/24] lancets #100 ea 08/13/24 [Rx Confirmed 09/28/24] insulin glargine 100 unit/mL (3 mL) subcutaneous pen (Basaglar KwikPen U-100 Insulin) 40 unit (0.4 mL) subcut QPM 30 days #12 mL 09/17/24 [Rx Confirmed 09/28/24] insulin lispro 100 unit/mL subcutaneous pen (Humalog KwikPen (U-100) Insulin) 15 unit (0.15 mL) subcut TID 30 days #15 mL 09/17/24 [Rx Confirmed 09/28/24] pen needle, diabetic 29 gauge x 1/2 #100 ea 09/17/24 [Rx Confirmed 09/28/24] acetaminophen 500 mg tablet 500 mg PO Q6H PRN fever or pain 10 days #40 tabs 10/07/24 [Rx] ascorbic acid (vitamin C) 500 mg tablet 500 mg PO QDAY 30 days #30 tabs 10/07/24 [Rx] docusate sodium 100 mg capsule (Stool Softener) 100 mg PO QDAY 90 days #90 caps 10/07/24 [Rx] ferrous sulfate 325 mg (65 mg iron) tablet 325 mg PO BID 90 days #180 tabs 10/07/24 [Rx] ibuprofen 800 mg tablet 800 mg PO Q6H PRN pain 10 days #40 tabs 10/07/24 [Rx] Intake Visit Data Collection New Patient or Established: Established Patient (seen at [facility] within 3 years) Reason for Visit:: OBC Consent obtained for Telemed Visit: No Seen by Clinical Staff ONLY (RN/MA): No Pack Train Driver Required: No Do You Feel Safe at Home: Yes Authorities Contacted: N/A PCP or OBGYN visit in last 3 months: Yes Date of Last PCP or OBGYN visit: 09/18/24 Hx Now: Yes Are you currently on any form of Control: No Pain Present Currently: No Pain Scale Used: Gold-Dominguez/Numerical Pain scale:: 0 Smoking Status Smoking Status: Never smoker Questionnaires Covid-19 Vaccine Questionnaire Has patient been vacinated for Covid-19 Have you been vacinated for Covid-19: No PHQ-9 PHQ-2 Over the last 2 weeks, how often have you been bothered by any of the following problems? 1. Little interest or pleasure in doing things: not at all PHQ-9 8. Moving or speaking so slowly that other people could have noticed? - Or the opposite - being so fidgety or restless that you have been moving around a lot more than usual: not at all Source: Developed by Drs. Yuval Collins, Vijaya Diaz, Kashif Villaseñor and colleagues, with an educational laila from [employer]. 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 Poor dates. Reports movement. Complains nausea and vomiting first trimester discomforts. Patient is currently taking vitamins. Denies SAB complaints. Patient is does not want to go to [place] for MFM appointment and prefers ultrasound local. Ordered first trimester labs. NIPT, carrier screens drawn today. And schedule ultrasound at [facility] for viability and dating. Discussed SAB precautions. Discussed comfort measures for first trimester discomforts. Return in 4 weeks 07/01/24 -?-?-?-?-?-?-?-?-?-?-?-?- 15w 4d 75.296 kg 127/78 absent unknown 18 155 active no ob complaints, nausea improved, sono pending AF P today, sono pending, patoent has dignity . prefers to do scan in [place]/transportation issue. sab precaution,increase fluid. rtc 4 week 08/11/24 -?-?-?-?-?-?-?-?-?-?-?-?- 21w 3d 77.111 kg 134/88 absent unknown 22 145 active fetus active. no SAB/PTL complaints,. no leaking or bleeding r/s sono at [facility], discuss PTL precaution, hydrate. 3rd tri labs 09/10/24 -?-?-?-?-?-?-?-?-?-?-?-?- 25w 5d 76.827 kg 124/80 absent unknown 25 143 active Reports positive movement. Denies leaking fluid. Denies bleeding at this time. Denies cramps at this time. Patient reports that she is trying to be compliant with the GDM diet. And she is checking her blood sugars 4 times a day. I asked patient about her results and patient reports that her sugars are above the expected normal goals the majority of the time. Consult with OB regarding blood sugar. Hemoglobin A1c today. And started on metformin 500 p.o. twice daily. I reviewed help to log sugars and the expected goals and I gave patient logs to write down her results. Patient will bring her results to see OB in 2 visits. Discussed labor precautions. Increase fluids. And I reviewed diet. With patient 09/15/24 -?-?-?-?-?-?-?-?-?-?-?-?- 26w 3d 76.204 kg 120/87 absent unknown 26 145 Patient presents with severe hyperglycemia, with glucose levels at 400, inadequately controlled on metformin alone. Insulin therapy indicated. Placenta previa may necessitate delivery at 37 weeks if confirmed by specialist. Plan - Await authorization for maternal- medicine referral, expected by tomorrow - Schedule ultrasound with specialist fo r confirmation of placenta previa - Admit patient to hospital tomorrow at 8 AM for 24-hour insulin adjustment - Initiate insulin therapy due to high g lucose levels (400) - Arrange home care nurse for insulin ad ministration after discharge - Follow up in 2 weeks - Patient to return immediately if any b leeding occurs - Tentative plan for at 37 wee ks if placenta previa is confirmed 09/23/24 -?-?-?-?-?-?-?-?-?-?-?-?- 27w 4d 77.564 kg 129/84 absent unknown 28 150 active - Admitted to hospital last week for glycemic control - Discharged home on Lantus and Humalo g insulin regimen - Diagnosed with complete posterior pl acenta previa - Current status: - Reports improved blood sugar levels since starting insulin - Denies any recent vaginal bleeding o r spotting - Reports having a cough - Medication adherence: - Taking prescribed insulin (40 units Lantus and 15 units Humalog) - No longer taking metformin as instru cted - Pending consultation with M specialist Dr. Irving in [place] - Continue insulin regimen with Lantus and Humalog (40 units and 15 units respectively) - Discontinue metformin - Maintain bed rest as much as possible due to placenta previa - Follow up in 2 weeks - Pending consultation with Karin Clifton specialist in [place] (awaiting insurance approval) - Monitor for any bleeding or spotting; if occurs, go to hospital immediately - Check on status of referral to special ist in [place] DEISY Calculator Estimated Delivery Date Method Current WG Current Estimate 12/19/24 Ultrasound #2 30w 4d Other Estimates 11/27/24 LMP (Uncertain) 33w 5d 12/17/24 Ultrasound #1 30w 6d 12/17/24 Manual 30w 6d wrong dates. ch wkaku dates to 12/19/24. sono Notes Visit Date: 09/10/24 Last Updated by: Vashti Peace CNM 09/10: 1hr gtt: 330 08/18/24 IUP 22w3. EDC: 12/19/24. COMPLETE PREVIA Visit Date: 08/11/24 Last Updated by: Vashti Peace CNM 08/11: O+,abs-, rpr;;nr, rub imm, HBSAG-,HIV-, HC-, GC/CT-, NIPT/AFP-, carrier screen- Office Procedures OB Clinic LOC & Office Proc's Nursing/Assessment Patient Status: Established Patient OB Clinic Nursing Assessment: Medication Reconciliation, Update PMH in EMR and Vital Signs OB Clinic Coordination of Care: Complex Care and Chronic Disease 1-5, Consent,records obtained, informed consent, Education Simp Pt/Fam, 4+ Authorizations needed, Lab and Imaging orders and Results/Orders obtained Special Needs: Heart tones Established Patient Charge Established Patient Point Assignment: 150 Established Patient Point Charge: EP Level 4 (120-155) Assessment & Plan Diagnosis / Problem List (1) Type 2 diabetes mellitus affecting in third trimester, antepartum: Status: Acute (2) Poorly controlled type 2 diabetes mellitus: Status: Acute (3) Diet controlled White classification A1 gestational diabetes mellitus (GDM): Status: Acute
== END 2024-09-23 13:37 | disposition home or self-care (01) ==
LOC: HODSOBC 13:00
PROVIDERS: Supervising Provider Obstetrics & Gynecology; Visit Provider Obstetrics & Gynecology
DX: O09.892 Supervision of other high risk pregnancies, second trimester (principal); Z3A.27 27 weeks gestation of pregnancy; O24.414 Gestational diabetes mellitus in pregnancy, insulin controlled
CPT/HCPCS: 99214; G0463

== ENCOUNTER 2024-09-28 09:23 | Observation (INO) | payer MEDICAID, SELFPAY ==
[2024-09-28] VITALS (48 sets, daily range): BP systolic 107–135; BP diastolic 64–88; PULSE 61–85; RESP 14–98; TEMP 36.6; O2SAT 95–100; BMI 36.0
--- NOTE | 2024-09-28 09:41 | XR_ITS ---
Examination: Complete OB ultrasound greater than 14 weeks Date and time of exam: September 28, 2024, 10:00 AM, comparison September 16, 2024 Indications: Vaginal bleeding today, history placenta previa Findings: Viable intrauterine single fetus with single amniotic sac Presentation breech spine anterior. Cardiac motion 132 BPM. Complete placenta previa, grade 2. About for insertion seen. Amniotic fluid index 11.6 cm. Cervix 3.5 cm). Right ovary 3.6 cm arterial flow. Left ovary obscured by bowel gas.. Composite estimated gestational age based on BPD, head circumference, abdominal circumference, femur length is 27 weeks 4 days Estimated weight 1021 g. Survey of intracranial anatomy, spinal anatomy, abdominal anatomy, four-chamber heart performed with no abnormalities identified. Impression: Viable intrauterine gestation sedation. Complete placenta previa, no placental abruption.
[2024-09-28 10:37] LABS: Basophils # (Auto) 0.0 Thou/mm3 (0.0-0.2); Basophils % (Auto) 0 % (0-2.5); Eosinophils # (Auto) 0.1 Thou/mm3 (0.0-0.5); Eosinophils % (Auto) 1 % (0-10); Hematocrit 39.1 % (36.0-46.0); Hemoglobin 13.0 g/dL (12.0-16.0); Immature Granulocytes Auto 0.03 Thou/mm3 (0.00-0.00); Lymphocytes # (Auto) 2.7 Thou/mm3 (1.0-4.8); Lymphocytes % (Auto) 39 % (10-50); Mean Corpuscular HGB Conc 33.2 g/dl (31.0-37.0); Mean Corpuscular Hemoglobin 31.3 pg (25.0-35.0); Mean Corpuscular Volume 94 fL (80-100); Monocytes # (Auto) 0.4 Thou/mm3 (0.0-0.8); Monocytes % (Auto) 6 % (0-12); Neutrophils # (Auto) 3.8 Thou/mm3 (1.8-7.7); Neutrophils % (Auto) 54 % (37-80); Nucleated Red Blood Cell # 0.00 Thou/mm3 (0.00-0.00); Nucleated Red Blood Cell % 0 /100 WBC (0); Platelet Count 265 Thou/mm3 (140-440); RDW Standard Deviation 44.3 fL (36.4-46.3); Red Blood Count 4.15 Miln/mm3 (4.00-5.20); White Blood Count 7.0 Thou/mm3 (3.6-11.0)
--- NOTE | 2024-09-28 11:47 | PD.ADDPROG ---
Addendum Progress Note Addendum Date of report being addended: 09/28/24 Narrative: The patient is a 33-year-old -0-0-2 history of vaginal delivery x 2 in the past. She states her kids are around 14 and 15 years old. She presented as a new OB to the [facility] obstetrical clinic and saw one of our midwives, Vashti Peace June 02, 2024 for the first time. She was 14-4/7 weeks at the time. She did not have good dating and this was a surprise . Approximately 2 years ago in [place] she was told she was prediabetic . This was not conveyed to us and patient had no further testing. It was first discovered she was diabetic during this . Her first hemoglobin A1c drawn was 9.8 in August and on September 17.. A 24-hour urine at that time was 294. Patient was admitted to the hospital for attempted glycemic control when she was 28 weeks . She was admitted to [facility] 08/19 to 08/22/2024. She was discharged home on Lantus 40 units twice daily and Humalog 15 units 3 times daily. Per clinic notes, patient was referred to an MFM in early for level 2 ultrasound and she declined this. She had a normal NIPT. She did have a 21-week ultrasound at [facility] in [place] revealing a complete posterior placenta previa and otherwise normal anatomy.. We have been trying to refer her out to maternal- medicine specialist for further treatment. She has not had a echocardiogram. She has not had an ophthalmology exam. She herself has not had an echocardiogram. She has not had a level 2 ultrasound yet. She has not had been treated with betamethasone yet. This morning, patient presented to triage reporting that she went to the restroom and passed a lot of blood clots in the toilet. She has been here monitored being worked up with an ultrasound and lab work and has not had any bleeding on her checks. heart tones are in the 150s and reactive for a 28-week fetus. She has 10 x 10 accelerations. She does have some subtle decelerations to the 120s with slow return to baseline lasting approximately 3 minutes. These are nonrepetitive. Patient has no contractions on the monitor. Patient is afebrile. Current blood pressure 107/64 Pulse 64 O2 saturations 98% on room air BMI 36. Physical exam: Patient is alert and orientated x 3 in no apparent distress She is [place]-speaking only and the entire physical exam and interview was conducted with Saige, labor and parts delivery driver and official program clerk. Heart is regular rate and rhythm no murmurs gallops Lungs clear to auscultation bilaterally Abdomen gravid nontender Speculum exam deferred but patient is not bleeding on any Chux or any pad at this time. Extremities showed no significant edema or erythema Under labs and tests: Hemoglobin is 13 hematocrit is 39 Ultrasound reveals a live intrauterine in the breech presentation with a complete placenta previa. Grade 2 placenta. Cervical length is 3.5 cm. JAKE is 11.6 weight is 1021 g Assessment and plan: 1. Intrauterine at 28-2/7 weeks 2. Complete placenta previa with active bleeding, stable for transfer 3. Rh+ blood type 4. to heart tones in the 150s with subtle decelerations to 120s for up to 3 minutes at a time. 5. Uncontrolled diabetes with a hemoglobin of 9.8. Diagnosed during the second trimester of . Needs echocardiogram, level 2 ultrasound, maternal- medicine consult. Needs endocrine and diabetic teaching. The patient herself needs ophthalmology and eye exam and cardiac workup. Last hemoglobin A1c 9.8 on 09/17/24. Last 24-hour urine 09/17/2024 294. 6. Patient has not had betamethasone yet. At this time patient will be transferred to [place] at [facility] for higher level of care. The case was discussed in detail with the accepting physician, Dr. Elen Blevins [facility] who graciously accepted our transfer. The OB clinic she has been seen at is the [facility] obstetrical clinic with the phone number: for further questions. DR Shaylee Vance MD
--- NOTE | 2024-09-28 11:50 | PC.CM ---
Received call from SILAS Torrez, requesting to initiate transfer to [facility], patient is having vaginal bleeding from placenta previa, Dr. Vance has already spoken to Dr. Loving at [facility] who is willing to accept the patient. Packet created.
== END 2024-09-28 13:14 | disposition short-term general hospital (02) ==
PROVIDERS: Admitting Provider Obstetrics & Gynecology; Visit Provider Obstetrics & Gynecology
DX: O44.13 Complete placenta previa with hemorrhage, third trimester (principal); O24.313 Unspecified pre-existing diabetes mellitus in pregnancy, third trimester; E11.65 Type 2 diabetes mellitus with hyperglycemia; Z3A.28 28 weeks gestation of pregnancy
CPT/HCPCS: 36415; 59025; 59899; 76805; 85025; 86850; 86900; 86901

== ENCOUNTER 2024-11-03 14:43 | Outpatient (AMB) | payer MEDICAID, SELFPAY ==
[2024-11-03 15:23] VITALS: BP 122/77; PULSE 81; RESP 16; TEMP 36.3; O2SAT 98; BMI 34.0
--- NOTE | 2024-11-03 15:23 | AMB.OBPP ---
Vital Signs 11/03/24 15:23 Height 1.47 m Height Method Stated Weight 73.652 kg Weight Measurement Method Standing Scale BMI 34.0 BP 122/77 Blood Pressure Source Automatic Cuff Blood Pressure Location Left Upper Arm Position Sitting Respiration 16 Pulse 81 Pulse Source Monitor Temp 97.3 F Temp Source Oral Pulse Oximetry (%) 98 Oxygen Delivery Method Room Air Allergies/Home Meds Allergies & Medications Allergies No Known Allergies Allergy (Verified 11/03/24 15:24) Medication Reconciliation vitamins with calcium no.72-iron 29 mg-folic acid 1 mg tablet ( Plus) 1 tab PO QDAY 90 days #90 tabs 06/02/24 [Rx Confirmed 11/03/24] vitamin-ferrous fumarate 28 mg iron-folic acid 800 mcg tablet ( Vitamins with Minerals) 1 tab PO QDAY #60 tabs 08/11/24 [Rx Confirmed 11/03/24] blood sugar diagnostic (Blood Glucose Test strips) #10 ea 08/13/24 [Rx Confirmed 11/03/24] blood-glucose meter #1 ea 08/13/24 [Rx Confirmed 11/03/24] lancets #100 ea 08/13/24 [Rx Confirmed 11/03/24] insulin glargine 100 unit/mL (3 mL) subcutaneous pen (Basaglar KwikPen U-100 Insulin) 40 unit (0.4 mL) subcut QPM 30 days #12 mL 09/17/24 [Rx Confirmed 11/03/24] insulin lispro 100 unit/mL subcutaneous pen (Humalog KwikPen (U-100) Insulin) 15 unit (0.15 mL) subcut TID 30 days #15 mL 09/17/24 [Rx Confirmed 11/03/24] pen needle, diabetic 29 gauge x 1/2 #100 ea 09/17/24 [Rx Confirmed 11/03/24] ascorbic acid (vitamin C) 500 mg tablet 500 mg PO QDAY 30 days #30 tabs 10/07/24 [Rx Confirmed 11/03/24] docusate sodium 100 mg capsule (Stool Softener) 100 mg PO QDAY 90 days #90 caps 10/07/24 [Rx Confirmed 11/03/24] ferrous sulfate 325 mg (65 mg iron) tablet 325 mg PO BID 90 days #180 tabs 10/07/24 [Rx Confirmed 11/03/24] Intake Visit Data Collection New Patient or Established: Established Patient (seen at [facility] within 3 years) Reason for Visit:: OBC Seen by Clinical Staff ONLY (RN/MA): No Day Habilitation Specialist Required: No Do You Feel Safe at Home: Yes Authorities Contacted: N/A PCP or OBGYN visit in last 3 months: Yes Date of Last PCP or OBGYN visit: 09/28/24 Hx Now: Yes Are you currently on any form of Control: No Pain Present Currently: No Pain Scale Used: Gold-Dominguez/Numerical Pain scale:: 0 Smoking Status 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 Past Medical History: No Hx Neurological Disorders, No Hx Breast Cancer, No Hx Cardiac Disorders, No Hx Cancer, No Hx Blood Disorders, No Hx Gastrointestinal Disorders, No Hx Renal Disease, No Hx Diabetes Mellitus Type 1 and No Hx Diabetes Mellitus Type 2 Questionnaires Covid-19 Vaccine Questionnaire Has patient been vacinated for Covid-19 Have you been vacinated for Covid-19: No Social History Living Situation History Lives With: Family Housing: House Tobacco History Smoking Status: Never smoker Second Hand Smoke Exposure: No Alcohol History Alcohol Intake: Never Domestic Abuse History Do You Feel Safe at Home: Yes EPDS - PP Depression Screening [place] Pospartum Depression Screen I have been able to laugh and see the funny side of things: (0) As much as I always could I have looked forward with enjoyment to things: (0) As much as I ever did I have blamed myself unnecessarily when things went wrong: (0) No, never I have been anxious or worried for no good reason: (0) No, not at all I have felt scared or panicky for no very good reason: (0) No, not at all Things have been getting on top of me: (0) No, I have been coping as well as ever I have been so unhappy that I have had difficulty sleeping: (0) No, not at all I have felt sad or miserable: (0) No, not at all I have been so unhappy that I have been crying: (0) No, never The thought of harming myself has occurred to me: (0) Never Total Score: EPDS Score: Referral is indicated for score of 9 or more, suicidal, or if provider believes patient is depressed regardless of score.: 0 EPDS completed yes Care OB Visit Log OB Flowsheet Initial Weight: Not Recorded Date <del>?</del> EGA Weight BP Alb Glu CTX Pres Fundal ht FHR Mov Dilation Station Effacement Hx Notes Visit Note 06/02/24 <del>?</del> 11w 3d 74.191 kg 131/77 absent 12 176 active 33-year-old 3 para 2. Poor dates. Reports movement. Complains nausea and vomiting first trimester discomforts. Patient is currently taking vitamins. Denies SAB complaints. Patient is does not want to go to [place] for MFM appointment and prefers ultrasound local. Ordered first trimester labs. NIPT, carrier screens drawn today. And schedule ultrasound at [facility] imaging for viability and dating. Discussed SAB precautions. Discussed comfort measures for first trimester discomforts. Return in 4 weeks 07/01/24 <del>?</del> 15w 4d 75.296 kg 127/78 absent unknown 18 155 active no ob complaints, nausea improved, sono pending AFP today, sono pending, patoent has dignity . prefers to do scan in [place]/transportation issue. sab precaution,increase fluid. rtc 4 week 08/11/24 <del>?</del> 21w 3d 77.111 kg 134/88 absent unknown 22 145 active fetus active. no SAB/PTL complaints,. no leaking or bleeding r/s sono at [facility], discuss PTL precaution, hydrate. 3rd tri labs 09/10/24 <del>?</del> 25w 5d 76.827 kg 124/80 absent unknown 25 143 active Reports positive movement. Denies leaking fluid. Denies bleeding at this time. Denies cramps at this time. Patient reports that she is trying to be compliant with the GDM diet. And she is checking her blood sugars 4 times a day. I asked patient about her results and patient reports that her sugars are above the expected normal goals the majority of the time. Consult with OB regarding blood sugar. Hemoglobin A1c today. And started on metformin 500 p.o. twice daily. I reviewed help to log sugars and the expected goals and I gave patient logs to write down her results. Patient will bring her results to see OB in 2 visits. Discussed labor precautions. Increase fluids. And I reviewed diet. With patient 09/15/24 <del>?</del> 26w 3d 76.204 kg 120/87 absent unknown 26 145 Patient presents with severe hyperglycemia, with glucose levels at 400, inadequately controlled on metformin alone. Insulin therapy indicated. Placenta previa may necessitate delivery at 37 weeks if confirmed by specialist. Plan - Await authorization for maternal- medicine referral, expected by tomorrow - Schedule ultrasound with specialist for confirmation of placenta previa - Admit patient to hospital tomorrow at 8 AM for 24-hour insulin adjustment - Initiate insulin therapy due to high glucose levels (400) - Arrange home care nurse for insulin administration after discharge - Follow up in 2 weeks - Patient to return immediately if any bleeding occurs - Tentative plan for at 37 weeks if placenta previa is confirmed 09/23/24 <del>?</del> 27w 4d 77.564 kg 129/84 absent unknown 28 150 active - Admitted to hospital last week for glycemic control - Discharged home on Lantus and Humalog insulin regimen - Diagnosed with complete posterior placenta previa - Current status: - Reports improved blood sugar levels since starting insulin - Denies any recent vaginal bleeding or spotting - Reports having a cough - Medication adherence: - Taking prescribed insulin (40 units Lantus and 15 units Humalog) - No longer taking metformin as instructed - Pending consultation with M specialist Dr. Irving in [place] - Continue insulin regimen with Lantus and Humalog (40 units and 15 units respectively) - Discontinue metformin - Maintain bed rest as much as possible due to placenta previa - Follow up in 2 weeks - Pending consultation with Dr. Irvign, [facility] specialist in [place] (awaiting insurance approval) - Monitor for any bleeding or spotting; if occurs, go to hospital immediately - Check on status of referral to specialist in [place] DEISY Calculator Estimated Delivery Date Method Current WG Current Estimate 12/19/24 Ultrasound #2 33w 3d Other Estimates 11/27/24 LMP (Uncertain) 36w 4d 12/17/24 Ultrasound #1 33w 5d 12/17/24 Manual 33w 5d wrong dates. change dates to 12/19/24. sono Notes Visit Date: 09/10/24 Last Updated by: Vashti Peace CNM 09/10: 1hr gtt: 330 08/18/24 IUP 22w3. EDC: 12/19/24. COMPLETE PREVIA Visit Date: 08/11/24 Last Updated by: Vashti Peace CNM 08/11: O+,abs-, rpr;;nr, rub imm, HBSAG-,HIV-, HC-, GC/CT-, NIPT/AFP-, carrier screen- HPI Interval History: 33-year-old 3 para 3 for 4-week . Patient had a primary for complete previa October 03, 2024. A baby boy weighing 3 pounds 15 ounces. was done at 29 weeks 4 bleeding. Skin incision is transverse, vertical incision on uterus. Patient also had type 2 diabetes insulin with poor control. Patient states she has not been using any insulin at all now. Baby is doing well and is in the NICU at [facility]. Patient denies any complaints of pain. No complains of signs of infection. Vaginal bleeding is light. Patient plans to use a Depo shot. will get depo. She is not sexually active. Patient is happy. No depression. Father the baby is involved. Siblings are adjusting Was or delivery considered high risk: Yes Delivery type: (x1 for complete previa/type 2 DM on insulin) Was labor induced: no Gestational age at delivery (weeks): 29.0 Delivery date: 10/03/24 Delivering provider: [facility] Delivery complications: Yes Delivery complications comment: bleeding Is patient infant: Yes Is patient sexually active: No Contraception planned: depo. 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 Lungs clear no wheezes. Abdomen is soft nontender. Uterus well involuted. Perineum is intact no lacerations. No swelling. Small lochia. Negative Homans' sign. 2+ DTRs. No edema no swelling. Breasts are soft. abdomen soft. skin incision intact, area healed, no s/s of infection General Limitations: no limitations General Appearance: alert, in no apparent distress, comfortable, cooperative, healthy appearing, well developed and well groomed Neck Neck exam: Present normal inspection, full ROM and trachea midline Chest Chest inspection: Present normal inspection and symmetric chest wall rise Resp Respiratory exam: Present normal lung sounds bilaterally Card Cardiovascular exam: Present regular rate, normal rhythm and normal heart sounds Abdominal Abdominal exam: Present soft and normal bowel sounds Psych Psychiatric exam: Present normal affect and normal mood Office Procedures OBC Clinic LOC & Office Proc's Nursing/Assessment Patient Status: Established Patient OB Clinic Nursing Assessment: Medication Reconciliation, Update PMH in EMR and Vital Signs OB Clinic Coordination of Care: Education Complex Pt/Fam, Consent,records obtained, informed consent, Lab and Imaging orders, Results/Orders obtained and Staff clarify orders Established Patient Charge Established Patient Point Assignment: 85 Established Patient Point Charge: EP Level 3 (80-115) Assessment & Plan Diagnosis / Problem List (1) Routine Follow-Up: (2) 2 weeks follow-up: Status: Acute Plan Depo 150 IM in 3 weeks. Patient will see health educator to help with disability. Discussed breast-feeding and pumping. Continue prenatals. [facility]. No heavy lifting. Increase rest. Continue with GDM diet. Return in 3 weeks for Depo Care Reviewed delivery summary and any complications: Yes Uterus involuted to: 3 below Perineal / incision healing noted: No Screened for depression: Yes Depression counseling provided: No Discussed family planning & contraception: Yes Contraception planned: depo. eventually plans on tubal Counseling on safe resumption of sexual activity: Yes Counseling on gradual excercise: Yes Discussed and concerns (describe), provided support: Yes Referred to trading specialist: No Counseled on good nutrition, hydration, and self care: Yes Chronic & current problems reconciled on problem list: Yes Additional follow up plans: 2 hr glucose nV Infant care discussed; questions answered: feeding Follow up: routine/prn Additional counseling & anticipatory guidance provided: Return in 3 weeks for Depo. Continue GDM diet (FP) Tobacco Smoking Status: Never smoker
== END 2024-11-03 15:47 | disposition home or self-care (01) ==
LOC: HODSOBC 14:43
PROVIDERS: Supervising Provider Advanced Practice Midwife; Visit Provider Advanced Practice Midwife
DX: Z39.2 Encounter for routine postpartum follow-up (principal); Z39.1 Encounter for care and examination of lactating mother
CPT/HCPCS: 99213; G0463

== ENCOUNTER 2024-12-02 14:18 | Outpatient (AMB) | payer MEDICAID, SELFPAY ==
--- NOTE | 2024-12-02 14:31 | AMBOBPPN_ITS ---
Vital Signs 12/02/24 14:32 Height 1.47 m Height Method Stated Weight 76.204 kg Weight Measurement Method Standing Scale BMI 35.2 BP 109/72 Blood Pressure Source Automatic Cuff Blood Pressure Location Right Upper Arm Position Sitting Respiration 18 Pulse 73 Pulse Source Monitor Temp 97.7 F Temp Source Temporal Artery Scan Pulse Oximetry (%) 98 Oxygen Delivery Method Room Air Allergies/Home Meds Allergies & Medications Allergies No Known Allergies Allergy (Verified 12/02/24 14:38) Intake Visit Data Collection New Patient or Established: Established Patient (seen at [facility] within 3 years) Reason for Visit:: PP/DEPO Seen by Clinical Staff ONLY (RN/MA): No [address] Service Required: No Do You Feel Safe at Home: Yes Authorities Contacted: N/A PCP or OBGYN visit in last 3 months: Yes Date of Last PCP or OBGYN visit: 11/03/24 Hx Now: No Are you currently on any form of Control: Yes Pain Present Currently: No Pain Scale Used: Gold-Dominguez/Numerical Pain scale:: 0 Smoking Status Smoking Status: Never smoker Immunizations Flu Vaccine in the Last 12 Months: No Flu Vaccine Exclusion Criteria: No Exclusion Criteria and 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: Past Medical History Past Medical History: No Hx Neurological Disorders, No Hx Breast Cancer, No Hx C ardiac Disorders, No Hx Cancer, No Hx Blood Disorders, No Hx Gastrointestinal Disorders, No Hx Renal Disease, No Hx Diabetes Mellitus Type 1 and No Hx Diabetes Mellitus Type 2 Questionnaires Covid-19 Vaccine Questionnaire Has patient been vacinated for Covid-19 Have you been vacinated for Covid-19: No Social History Living Situation History Marital Status: Lives With: Family Housing: House Tobacco History Smoking Status: Never smoker Second Hand Smoke Exposure: No Alcohol History Alcohol Intake: Never Domestic Abuse History Do You Feel Safe at Home: Yes EPDS - PP Depression Screening [place] Pospartum Depression Screen I have been able to laugh and see the funny side of things: (0) As much as I always could I have looked forward with enjoyment to things: (0) As much as I ever did I have blamed myself unnecessarily when things went wrong: (0) No, never I have been anxious or worried for no good reason: (0) No, not at all I have felt scared or panicky for no very good reason: (0) No, not at all Things have been getting on top of me: (0) No, I have been coping as well as ever I have been so unhappy that I have had difficulty sleeping: (0) No, not at all I have felt sad or miserable: (0) No, not at all I have been so unhappy that I have been crying: (0) No, never The thought of harming myself has occurred to me: (0) Never EPDS completed yes Care OB Visit Log OB Flowsheet Initial Weight: Not Recorded Date -?-?-?-?-?-?-?-?-?-?-?-?- EGA Weight BP Alb Glu CTX Pres Fundal ht FHR Mov Dilation Station Effacement Hx Notes Visit Note 06/02/24 -?-?-?-?-?-?-?-?-?-?-?-?- 11w 3d 74.191 kg 131/77 absent 12 176 ac tive 33-year-old 3 para 2. Poor dates. Reports movement. Complains nausea and vomiting first trimester discomforts. Patient is currently taking vitamins. Denies SAB complaints. Patient is does not want to go to [place] for M appointment and prefers ultrasound local. Ordered first trimester labs. NIPT, carrier screens drawn today. And schedule ultrasound at [facility] imaging for viability and dating. Discussed SAB precautions. Discussed comfort measures for first trimester discomforts. Return in 4 weeks 07/01/24 -?-?-?-?-?-?-?-?-?-?-?-?- 15w 4d 75.296 kg 127/78 absent unknown 18 155 active no ob complaints, nausea improved, sono pending AF P today, sono pending, patoent has dignity . prefers to do scan in [place]/transportation issue. sab precaution,increase fluid. rtc 4 week 08/11/24 -?-?-?-?-?-?-?-?-?-?-?-?- 21w 3d 77.111 kg 134/88 absent unknown 22 145 active fetus active. no SAB/PTL complaints,. no leaking or bleeding r/s sono at [facility], discuss PTL precaution, hydrate. 3rd tri labs 09/10/24 -?-?-?-?-?-?-?-?-?-?-?-?- 25w 5d 76.827 kg 124/80 absent unknown 25 143 active Reports positive movement. Denies leaking fluid. Denies bleeding at this time. Denies cramps at this time. Patient reports that she is trying to be compliant with the GDM diet. And she is checking her blood sugars 4 times a day. I asked patient about her results and patient reports that her sugars are above the expected nor mal goals the majority of the time. Consult with OB regarding blood sugar. Hemoglobin A1c today. And started on metformin 500 p.o. twice daily. I reviewed help to log sugars and the expected goals and I gave patient logs to write down her results. Patient will bring her results to see OB in 2 visits. Discussed labor precautions. Increase fluids. And I reviewed diet. With patient 09/15/24 -?-?-?-?-?-?-?-?-?-?-?-?- w 3d 76.204 kg 120/87 absent unknown 26 145 Patient presents with severe hyperglycemia, with glucose levels at 400, inadequately controlled on metformin alone. Insulin therapy indicated. Placenta previa may necessitate delivery at 37 weeks if confirmed by specialist. Plan - Await authorization for maternal- medicine referral, expected by tomorrow - Schedule ultrasound with specialist fo r confirmation of placenta previa - Admit patient to hospital tomorrow at 8 AM for 24-hour insulin adjustment - Initiate insulin therapy due to high g lucose levels (400) - Arrange home care nurse for insulin ad ministration after discharge - Follow up in 2 weeks - Patient to return immediately if any b leeding occurs - Tentative plan for at 37 wee ks if placenta previa is confirmed 09/23/24 -?-?-?-?-?-?-?-?-?-?-?-?- 27w 4d 77.564 kg 129/84 absent unknown 28 150 active - Admitted to hospital last week for glycemic control - Discharged home on Lantus and Humalo g insulin regimen - Diagnosed with complete posterior pl acenta previa - Current status: - Reports improved blood sugar levels since starting insulin - Denies any recent vaginal bleeding o r spotting - Reports having a cough - Medication adherence: - Taking prescribed insulin (40 units Lantus and 15 units Humalog) - No longer taking metformin as instru cted - Pending consultation with M specialist Dr. Irving in [place] - Continue insulin regimen with Lantus and Humalog (40 units and 15 units respectively) - Discontinue metformin - Maintain bed rest as much as possible due to placenta previa - Follow up in 2 weeks - Pending consultation with [facility] specialist in [place] (awaiting insurance approval) - Monitor for any bleeding or spotting; if occurs, go to hospital immediately - Check on status of referral to special ist in [place] DEISY Calculator Estimated Delivery Date Method Current WG Current Estimate 12/19/24 Ultrasound #2 37w 4d Other Estimates 11/27/24 LMP (Uncertain) 40w 5d 12/17/24 Ultrasound #1 37w 6d 12/17/24 Manual 37w 6d wrong dates. ch kwaku dates to 12/19/24. sono Notes Visit Date: 09/10/24 Last Updated by: Vashti Peace CNM 09/10: 1hr gtt: 330 08/18/24 IUP 22w3. EDC: 12/19/24. COMPLETE PREVIA Visit Date: 08/11/24 Last Updated by: Vashti Peace CNM 08/11: O+,abs-, rpr;;nr, rub imm, HBSAG-,HIV-, HC-, GC/CT-, NIPT/AFP-, carrier screen- HPI Interval History: 33-year-old 3 para 3 for 8-week visit. Patient had a primary for complete previa October 03, 2024. A baby boy that weighed 3 pounds 15 ounces. The baby is still in the NICU at [facility]. Baby is growing and gaining it now weighs 5 pounds. Patient is pumping and feeding the baby with bottle she is. She is happy no depression. The siblings are adjusting. Patient has not had sex yet. She would like to start on the Depo. No interval complaints Was or delivery considered high risk: Yes Delivery type: (Complete previa bleeding.) Was labor induced: no Gestational age at delivery (weeks): 29.4 Delivery date: 10/03/24 Delivering provider: unknown Delivery complications: No Delivery complications comment: none Is patient infant: Yes Is patient sexually active: No Contraception planned: Depo-Provera Office Procedures OBC Clinic LOC & Office Proc's Nursing/Assessment Patient Status: Established Patient OB Clinic Nursing Assessment: Medication Reconciliation, Update PMH in EMR and Vital Signs OB Clinic Coordination of Care: Complex Care and Chronic Disease 1-5, Education Complex Pt/Fam, Consent,records obtained, informed consent, Lab and Imaging orders, Results/Orders obtained and Staff clarify orders Miscellaneous Interventions: Blood/Urine Collection Established Patient Charge Established Patient Point Assignment: 140 Established Patient Point Charge: EP Level 4 (120-155) Antepartum Initial or Follow-up Antepartum Follow up Visit: Yes Injection/Vaccine Admin SQ Im Injection: Yes In Clinic Bedside tests/procedures Bedside HCG: Yes Office Meds Depo-Provera 150 mg/mL intramuscular syringe Performing Provider: Vashti Peace CNM Performing Location: [facility] Administered by: Mariajose Foster MA on 12/02/24 15:00 Dose Route Admin Location Dispensed Lot Number Expiration Date Pack age [facility] [employer] Install[employer] 150 mg IM RIGHT GLUTE 1 mL [id number] 10/06/25 [id number] [facility] Results Urine HCG Urine HCG Negative Last Edit by Mariajose Foster MA on 12/02/24 14:4 9 Urine HCG Urine HCG Negative Last Edit by Mariajose Foster MA on 12/02/24 14:5 9 Assessment & Plan Diagnosis / Problem List (1) Encounter for visit: Status: Acute (2) Encounter for management and injection of depo-Provera: Status: Acute Plan Depo-Provera 150 mg IM x 1. I reviewed method and side effects with the patient. Discussed ACHES. Condoms for 2 weeks. Patient to walk 40 minutes a day. And continue to take her vitamins. And advised on calcium twice a day. I discussed pumping and increase fluids. Return in 3 months Depo Care Uterus involuted to: 4 below Perineal / incision healing noted: No Screened for depression: Yes Depression counseling provided: No Discussed family planning & contraception: Yes Contraception planned: Depo-Provera Counseling on safe resumption of sexual activity: Yes Counseling on gradual excercise: Yes Discussed and concerns (describe), provided support: Yes Referred to infection control specialist: No Counseled on good nutrition, hydration, and self care: Yes Reviewed vaccine status: No Chronic & current problems reconciled on problem list: Yes care discussed; questions answered: feeding Follow up: routine/prn Additional counseling & anticipatory guidance provided: Depo-Provera 150 IM x 1. Condoms for 2 weeks. Walk 40 minutes a day. Take vitamin D and calcium along with her prenatals. Increase fluids and discussed frequent pumping to maintain milk supply. Return in 3 months for Depo
[2024-12-02 14:32] VITALS: BP 109/72; PULSE 73; RESP 18; TEMP 36.5; O2SAT 98; BMI 35.2
== END 2024-12-02 15:34 | disposition home or self-care (01) ==
LOC: HODSOBC 14:18
PROVIDERS: Supervising Provider Advanced Practice Midwife; Visit Provider Advanced Practice Midwife
DX: Z39.2 Encounter for routine postpartum follow-up (principal); Z39.1 Encounter for care and examination of lactating mother; Z30.013 Encounter for initial prescription of injectable contraceptive; Z32.02 Encounter for pregnancy test, result negative
CPT/HCPCS: 81025; 96372; 99214; J3490; Z1034; G0463

== ENCOUNTER 2025-01-30 10:51 | Outpatient (AMB) | payer MEDICAID, SELFPAY ==
[2025-01-30 11:21] VITALS: BP 125/80; PULSE 79; RESP 14; TEMP 36.3; O2SAT 98; BMI 35.1
--- NOTE | 2025-01-30 11:21 | GYNCLNT_ITS ---
Vital Signs 01/30/25 11:21 Height 1.47 m Height Method Stated Weight 75.863 kg Weight Measurement Method Standing Scale BMI 35.1 BP 125/80 Blood Pressure Source Automatic Cuff Blood Pressure Location Left Upper Arm Position Sitting Respiration 14 Pulse 79 Pulse Source Monitor Temp 97.4 F Temp Source Oral Pulse Oximetry (%) 98 Oxygen Delivery Method Room Air Allergies/Home Meds Allergies & Medications Allergies No Known Allergies Allergy (Verified 01/30/25 11:22) Medication Reconciliation vitamin-ferrous fumarate 28 mg iron-folic acid 800 mcg tablet ( Vitamins with Minerals) 1 tab PO QDAY #60 tabs 01/30/25 [Rx] Intake Visit Data Collection New Patient or Established: Established Patient (seen at [facility] within 3 years) Reason for Visit:: CONTROL DEPO Seen by Clinical Staff ONLY (RN/MA): No Hand Therapist Required: No Do You Feel Safe at Home: Yes Authorities Contacted: N/A PCP or OBGYN visit in last 3 months: Yes Hx Now: Yes Are you currently on any form of Control: Yes Last menstrual period: 01/16/25 Pain Present Currently: No Pain Scale Used: Gold-Dominguez/Numerical Pain scale:: 0 Smoking Status Smoking Status: Never smoker Immunizations Flu Vaccine in the Last 12 Months: Yes Flu Vaccine Exclusion Criteria: Already 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 Household 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 History Menstrual regularity: regular Flow: normal Monthly: Yes How many days does period last: 8 Age at menarche: 13 Currently sexually active: Yes GRID TRIMMER: Past Medical History Past Medical History: No Hx Neurological Disorders, No Hx Breast Cancer, No Hx Cardiac Disorders, No Hx Cancer, No Hx Blood Disorders, No Hx Gastrointestinal Disorders, No Hx Renal Disease, No Hx Diabetes Mellitus Type 1 and No Hx Diabetes Mellitus Type 2 Questionnaires Covid-19 Vaccine Questionnaire Has patient been vacinated for Covid-19 Have you been vacinated for Covid-19: Yes PHQ-9 PHQ-2 Over the last 2 weeks, how often have you been bothered by any of the following problems? 1. Little interest or pleasure in doing things: not at all 2. Feeling down, depressed, or hopeless: not at all Total score: 0 PHQ-9 3. Trouble falling or staying asleep, or sleeping too much: Not at all 4. Feeling tired or having little energy: Not at all 5. Poor appetite or overeating: Not at all 6. Feeling bad about yourself - or that you are a failure or have let yourself or your family down: Not at all 7. Trouble concentrating on things, such as reading the newspaper or watching television: Not at all 8. Moving or speaking so slowly that other people could have noticed? - Or the opposite - being so fidgety or restless that you have been moving around a lot more than usual: not at all 9. Thoughts that you would be better off or of hurting yourself in some way: Not at all Total score: 0 Source: Developed by Drs. Yuval Collins, Vijaya Diaz, Kashif Villaseñor and colleagues, with an educational laila from [employer]. Depression screen completed yes Social History Living Situation History Lives With: Family Housing: House Tobacco History Smoking Status: Never smoker Second Hand Smoke Exposure: No Alcohol History Alcohol Intake: Never Domestic Abuse History Do You Feel Safe at Home: Yes History of Present Illness HPI Narrative 30 3 para 3 for repeat Depo. Her last Depo was 12 weeks ago. She is breast and bottlefeeding. Denies any chronic illness. x 1. No GRID TRIMMER complaints. Patient denies social habits. She is happy with Depo and denies any abnormal side effects. LMP 01/16/25 Review of Systems Review of Systems Systems Reviewed: All systems reviewed, normal except as documented Exam General Limitations: no limitations General Appearance: alert, in no apparent distress, comfortable, cooperative, healthy appearing, well developed and well groomed Head Head exam: atraumatic, normocephalic and normal inspection Chest Chest inspection: Present normal inspection and symmetric chest wall rise Resp Respiratory exam: Present normal lung sounds bilaterally Card Cardiovascular exam: Present regular rate, normal rhythm and normal heart sounds Abdominal Abdominal exam: Present soft and normal bowel sounds Results Objective Laboratory: negative preg test Office Procedures [facility] LOC & Office Proc's Nursing/Assessment Patient Status: Established Patient OB Clinic Nursing Assessment: Medication Reconciliation, Update PMH in EMR and Vital Signs OB Clinic Coordination of Care: Complex Care and Chronic Disease 1-5, Consent,records obtained, informed consent, Education Simp Pt/Fam, 1 Ins Aut horization, Lab and Imaging orders, Results/Orders obtained and Staff clarify orders Miscellaneous Interventions: Blood/Urine Collection Established Patient Charge Established Patient Point Assignment: 150 Established Patient Point Charge: EP Level 4 (120-155) Injection/Vaccine Admin SQ Im Injection: Yes In Clinic Bedside tests/procedures Bedside HCG: Yes Office Meds Depo-Provera 150 mg/mL intramuscular syringe Performing Provider: Vashti Peace CNM Performing Location: [facility] Administered by: Helena Azul MA on 01/30/25 14:28 Dose Route Admin Location Dispensed Lot Number Expiration Date Pack age [facility] Lending Consultant 150 mg IM RIGHT GLUTE 1 mL [id number] 12/04/25 5637-9790-03 [id number] [facility] Results Urine HCG Urine HCG Negative Last Edit by Helena Azul MA on 01/30/25 11:24 Assessment & Plan Diagnosis / Problem List (1) Encounter for management and injection of depo-Provera: Status: Acute Plan Depo-Provera 150 mg IM x 1. Condoms for 2 weeks. Review method and side effects. Walk 40 minutes a day. Patient to continue prenatals with calcium. Pap smear in 3 years. Return in 3 months repeat Depo. Refill vitamins Additional Plan Follow Up: 3 Months (depo)
== END 2025-01-30 11:51 | disposition home or self-care (01) ==
LOC: HODSOBC 10:51
PROVIDERS: Supervising Provider Advanced Practice Midwife; Visit Provider Advanced Practice Midwife
DX: Z30.42 Encounter for surveillance of injectable contraceptive (principal)
CPT/HCPCS: 81025; 96372; 99214; J3490; G0463